=== PATIENT | male | born 1950 | race Caucasian/White ===

== ENCOUNTER → 2020-02-23 10:24 | Outpatient (BNVA) | payer MEDICARE, SELFPAY | PROVIDERS: PCP Internal Medicine; Referring Provider Internal Medicine; Visit Provider Surgery | DX: L72.0 Epidermal cyst (principal) | CPT/HCPCS: 99202 ==

== ENCOUNTER 2020-02-29 07:43 | Outpatient (REF) | payer MEDICARE, SELFPAY ==
[2020-02-29 07:48] VITALS: BP 142/85; PULSE 89; RESP 16; TEMP 36; O2SAT 98
[2020-02-29 07:51] VITALS: BMI 30.9
--- NOTE | 2020-02-29 08:37 | PM.OP ---
Brief Operative Note Date of Service: 02/29/20 Pre-op diagnosis: Epidermal inclusion cyst right hip Post-op diagnosis: same Procedure: Excision of epidermal inclusion cyst right hip Implants: none Surgeon: Bon Morales MD Anesthesia: local Estimated blood loss (mL): 2 Pathology: other (Epidermal inclusion cyst) Condition: stable Disposition: other (Home)
--- NOTE | 2020-02-29 08:39 | P.OP_ITS ---
Operative Note Operative Note Date of Service: 02/29/20 Narrative: Preoperative diagnosis: epidermal inclusion cyst right hip Postoperative diagnosis: same Procedure: Excision of epidermal inclusion cyst right hip Surgeon: Bon Morales MD Fruit Bar Maker: none Anesthesia: Local Indications for surgery: 69 year old male with an enlarging epidermal inclusion cyst of the right hip causeing some discomfort. Findings: 3 cm epidermal inclusion cyst right hip. Specimen: epidermal inclusion cyst right hip EBL: 2 ml Complications: none Procedure details: Patient was brought to the minor surgery suite and placed in a left lateral decubitus position. The site of surgery was confirmed by the patient and informed consent was confirmed. The skin was prepped with betadine and draped in a sterile fashion. Local was infiltrated around the lesion ( Lidocaine 1% with epi) and an elliptiical incision created. The incision was carried around the lesion and sharp dissection used to dissect the large cyst from the surround subcutaneous tissue. The cyst was passed off the table and sent to pathology for further examination. Subcutaneous tissue and dermis were reapproximated with interrupted 3-0 Polysord and skin closed with interrupted 3-0 Nylon suture. 2x2 gauze and tegaderm was applied. The patient tolerated the procedure well and was discharged to home in stable condition.
[2020-02-29 08:40] VITALS: BP 154/80; RESP 16; O2SAT 96
== END 2020-02-29 07:44 | disposition home or self-care (01) ==
LOC: HO.MS 07:43
PROVIDERS: PCP Internal Medicine; Visit Provider Surgery
PROC: (CPT 11403; principal; 2020-02-29 08:00)
DX: L72.0 Epidermal cyst (principal); I48.0 Paroxysmal atrial fibrillation
CPT/HCPCS: 11403; 12032; 88304

== ENCOUNTER → 2020-03-09 08:52 | Outpatient (BNVA) | payer MEDICARE, SELFPAY | PROVIDERS: PCP Internal Medicine; Visit Provider Surgery | DX: L72.0 Epidermal cyst (principal) | CPT/HCPCS: 99212 ==

== ENCOUNTER 2020-07-29 10:30 | Outpatient (REF) | payer MEDICARE, SELFPAY ==
[2020-07-29 12:00] LABS: Alanine Aminotransferase 25 U/L (0-40); Albumin Level 3.7 g/dL (3.5-5.0); Alkaline Phosphatase 146 U/L (39-117); Aspartate Amino Transferase 19 U/L (5-37); Bilirubin Direct 0.6 mg/dL (0.0-0.5); Bilirubin Total 1.5 mg/dL (0.0-1.0); Cholesterol 112 mg/dL; Glucose Fasting 111 mg/dL (60-99); HDL Cholesterol 33 mg/dL; LDL Cholesterol Calculated 66 mg/dl; Total Protein 6.4 g/dL (6.5-8.0); Triglycerides 68 mg/dL
[2020-07-29 12:23] LABS: Estimated Average Glucose 131 mg/dL; Hemoglobin A1c % 6.2 %
[2020-07-29 13:31] LABS: Reflex LDLD? No
== END 2020-07-29 10:31 | disposition home or self-care (01) ==
LOC: HO.LNP 10:30
PROVIDERS: Visit Provider Internal Medicine
DX: R73.03 Prediabetes (principal); E78.00 Pure hypercholesterolemia, unspecified
CPT/HCPCS: 80061; 80076; 82947; 83036

== ENCOUNTER 2021-01-31 10:47 | Outpatient (REF) | payer MEDICARE, SELFPAY ==
[2021-01-31 10:50] LABS: MANUAL DIFF FLAG NO
[2021-01-31 11:28] LABS: Appearance Urine CLEAR; Color Urine YELLOW; Glucose Urine UA NEG (NEG); Leukocyte Esterase Urine NEG (NEG); Nitrite Urine NEG (NEG); PH 5.5 (5.0-8.0); Specific Gravity - Urine >= 1.030 (1.005-1.025); Urine Blood NEG (NEG); Urine Ketones NEG (NEG); Urine Protein NEG (NEG-TRACE)
[2021-01-31 11:41] LABS: Basophils Percent Auto 0.4 % (0-2); Eosinophils Absolute Auto 0.3 X10*3/uL (0.0-0.4); Hematocrit 46.8 % (42.0-52.0); Hemoglobin 15.3 g/dl (14.0-18.0); Imm Gran Abs Auto 0.02 X10*3/uL (0.00-0.03); Imm Gran Pct Auto 0.2 % (0.0-0.4); Lymphocytes Absolute Auto 2.5 X10*3/uL (1.2-4.9); Lymphocytes Percent Auto 29.2 % (20-40); Mean Corpuscular HGB Conc 32.7 g/dl (31.0-36.0); Mean Corpuscular Hemoglobin 28.8 pg (27.0-33.0); Monocytes Absolute Auto 0.7 X10*3/uL (0.1-1.2); Monocytes Percent Auto 8.3 % (2-11); Neutrophils Percent Auto 58.9 % (45-73); Platelet Count 294 X10*3/uL (160-400); Red Blood Count 5.32 X10*6/uL (4.60-5.80); White Blood Count 8.6 X10*3/uL (4.8-10.8)
[2021-01-31 12:19] LABS: PSA,Total (Free>4and<10) 3.39 ng/mL (0.00-4.00)
[2021-01-31 12:20] LABS: Alanine Aminotransferase 32 U/L (0-40); Albumin Level 3.8 g/dL (3.5-5.0); Alkaline Phosphatase 138 U/L (39-117); Anion Gap 15 (12-20); Aspartate Amino Transferase 22 U/L (5-37); Bilirubin Total 1.7 mg/dL (0.0-1.0); Blood Urea Nitrogen 17 mg/dL (9-16); Calcium 9.1 mg/dL (8.4-10.2); Carbon Dioxide 23 mmol/L (22-29); Chloride 108 mmol/L (96-108); Cholesterol 115 mg/dL; Estimated Glomerular Filt Rate > 60; Glucose Fasting 109 mg/dL (60-99); HDL Cholesterol 36 mg/dL; LDL Cholesterol Calculated 66 mg/dl; Potassium 4.5 mmol/L (3.3-5.1); Sodium 141 mmol/L (135-145); Total Protein 6.7 g/dL (6.5-8.0); Triglycerides 68 mg/dL
[2021-01-31 12:26] LABS: Reflex LDLD? No
[2021-01-31 12:27] LABS: Estimated Average Glucose 126 mg/dL
[2021-01-31 12:28] LABS: Creatinine Urine 155.87 mg/dL; Microalbum/Creatinine Ratio Ur 3.8 ug/mg cr
== END 2021-01-31 10:48 | disposition home or self-care (01) ==
LOC: HO.LNP 10:47
PROVIDERS: PCP Internal Medicine; Visit Provider Internal Medicine
DX: Z00.00 Encounter for general adult medical examination without abnormal findings (principal); Z12.5 Encounter for screening for malignant neoplasm of prostate; R74.8 Abnormal levels of other serum enzymes; E78.00 Pure hypercholesterolemia, unspecified; R73.03 Prediabetes
CPT/HCPCS: 80053; 80061; 81003; 82043; 83036; 84153; 85025

== ENCOUNTER 2021-05-01 08:21 | Day surgery (SDC) | payer MEDICARE, SELFPAY ==
[2021-04-25 14:23] VITALS: BMI 30.2
--- NOTE | 2021-04-28 08:23 | HO.ANESPROP2 ---
Documented by User: Brooklyn Siddiqui NP 04/28/21 08:24 HPI - Anesthesia Eval Consult details Narrative: 70yo M for Colonoscopy [facility] Past Medical History Medical History (Updated 04/25/21 @ 14:17 by Antonia Miguel RN) Arthritis CAD (coronary artery disease) Hyperlipidemia AR (myocardial infarction) (~1999) Paroxysmal atrial fibrillation Family History Family History Mother History of stomach cancer Brother History of lung cancer Surgical History Surgical History (Updated 04/25/21 @ 14:17 by Antonia Miguel RN) H/O angioplasty (~1999) History of colonoscopy Hx of excision of mass S/P appendectomy (~05/2014) Social History Social History Alcohol intake: never Patient Tobacco Use Status: Tobacco use Unknown Use of substances other than those prescribed or required for medical reasons: No Advance Directives: No Advance Directives Information Provided: Yes Advance Directives on File: No Meds Allergies Allergy/AdvReac Type Severity Reaction Status Date / Time No Known Allergies Allergy Verified 04/25/21 14:22 Home Medications Medication Instructions Recorded Confirmed Last Taken Type aspirin 81 mg tablet,delayed 81 mg PO DAILY 02/23/20 04/25/21 Unknown History release atorvastatin 20 mg tablet 20 mg PO DAILY 02/23/20 04/25/21 Unknown History multivitamin 1 tab PO DAILY 02/23/20 04/25/21 Unknown History omega 9-hef-fdg-fish oil 1,000 mg 1 cap PO DAILY 04/25/21 04/25/21 Unknown History (120 mg-180 mg) capsule (Fish Oil) Exam Exam Date and Time: April 28, [id number] Height,Weight and Vital Signs: Height 6 ft 2 in Weight 106.594 kg Assessment and Plan Assessment Anesthesia Assessment: Chart Reviewed Documented by User: Althea Cosme MD 05/01/21 09:40 PMFSH Past Medical History Medical History (Updated 04/25/21 @ 14:17 by Antonia Miguel RN) Arthritis CAD (coronary artery disease) Hyperlipidemia AR (myocardial infarction) (~1999) Paroxysmal atrial fibrillation Family History Family History Mother History of stomach cancer Brother History of lung cancer Family history of problems with anesthesia: No Surgical History Surgical History (Updated 04/25/21 @ 14:17 by Antonia Miguel RN) H/O angioplasty (~1999) History of colonoscopy Hx of excision of mass S/P appendectomy (~05/2014) History of Problems with Anesthesia: No Social History Social History Alcohol intake: never Patient Tobacco Use Status: Tobacco use Unknown Use of substances other than those prescribed or required for medical reasons: No Advance Directives: No Advance Directives Information Provided: Yes Advance Directives on File: No Meds Allergies Allergy/AdvReac Type Severity Reaction Status Date / Time No Known Allergies Allergy Verified 04/25/21 14:22 Home Medications Medication Instructions Recorded Confirmed Last Taken Type aspirin 81 mg tablet,delayed 81 mg PO DAILY 02/23/20 04/25/21 Unknown History release atorvastatin 20 mg tablet 20 mg PO DAILY 02/23/20 04/25/21 Unknown History multivitamin 1 tab PO DAILY 02/23/20 04/25/21 Unknown History omega 0-mda-gtu-fish oil 1,000 mg 1 cap PO DAILY 04/25/21 04/25/21 Unknown History (120 mg-180 mg) capsule (Fish Oil) Exam Airway Mallampati Class: II (Partial left at home) TM Dist: >3cm Neck ROM: Full Partial: Upper and Lower Heart: rrr Lungs: cta Assessment and Plan Assessment Anesthesia Assessment: Anesthesia Plan Discussed and Chart Reviewed Final Anesthetic Review Family History of Problems with Anesthesia: No History of Problems with Anesthesia: No NPO: Yes ASA Class: III Final Preanesthetic Review: No Changes in Pt Med Stat, Meds/Allgs Chart Reviewed and Consent Obtained/Reviewed Patient Risk: Intermediate Procedure Risk: Intermediate Anesthetic Plan Anesthetic Plan: MAC: Disposition: Standard PACU
[2021-05-01 09:02] VITALS: BP 131/76; PULSE 81; RESP 16; TEMP 36.6; O2SAT 97
[2021-05-01 10:36] VITALS: BP 133/78; PULSE 77; RESP 14; TEMP 36.1; O2SAT 96
--- NOTE | 2021-05-01 10:41 | PM.OP ---
Brief Operative Note Date of Service: 05/01/21 Pre-op diagnosis: Screening Post-op diagnosis: other (Diverticulosis, Internal hemorrhoids) Procedure: Colonoscopy to the cecum and TI Surgeon: Harrison Bower Anesthesia: MAC Was an High Speed Operator used for this Procedure?: No Estimated blood loss (mL): 0 Pathology: none sent Condition: stable Disposition: PACU
[2021-05-01 10:51] VITALS: BP 139/77; PULSE 77; RESP 16; TEMP 36.1; O2SAT 97
--- NOTE | 2021-05-01 11:04 | OP_ITS ---
SURGEON: Harrison Bower MD INDICATIONS: The patient presents for evaluation of colorectal cancer screening, family history of colon cancer, and heme-positive stool. Full consent has been obtained from him for this, including risks of bleeding and perforation. PREOPERATIVE DIAGNOSIS: POSTOPERATIVE DIAGNOSIS: PROCEDURE PERFORMED: Colonoscopy to the cecum and terminal ileum. ESTIMATED BLOOD LOSS: COMPLICATIONS: ANESTHESIA: Medication used, monitored anesthesia care. ASSISTANTS: SPECIMENS: PREOPERATIVE DIAGNOSES: Colorectal cancer screening, family history of colon cancer, heme-positive stool. POSTOPERATIVE DIAGNOSES: Colorectal cancer screening, family history of colon cancer, heme-positive stool, diverticulosis, and internal hemorrhoids. DESCRIPTION OF PROCEDURE: The patient was placed in the left lateral decubitus position the digital rectal exam revealed no abnormalities. The Olympus video pediatric colonoscope was entered into the rectum and advanced easily to the cecum. Once in the cecum, I did identify normal-appearing cecal pouch with appendiceal orifice and a normal-appearing ileocecal valve. The terminal ileum was cannulated and appeared normal. The scope was withdrawn back in the colon. The entire cecum and ileocecal valve appeared normal. The scope was slowly withdrawn assessing all mucosal surfaces carefully. Preparation was excellent. I did not visualize any sign of polyps, colitis, nor angiodysplasia. There was a mild amount of sigmoid diverticulosis. In the rectum, the scope was retroflexed visualizing internal hemorrhoids, but no other pathology. The rectal mucosa appeared normal. The scope was straightened and withdrawn from the patient. He tolerated the procedure well and was returned to the recovery area in stable condition. IMPRESSION: 1. Diverticulosis. 2. Internal hemorrhoids. PLAN: Given the patient's family history, I would recommend a followup colonoscopy in 5 years for further screening. He will otherwise see me on a p.r.n. basis. MD TUNDE Pereira/TYLER / [phone]
== END 2021-05-01 11:15 | disposition home or self-care (01) ==
PROVIDERS: PCP Internal Medicine; Visit Provider Internal Medicine
PROC: 0DJD8ZZ Inspection of Lower Intestinal Tract, Via Natural or Artificial Opening Endoscopic (ICD-10-PCS; CPT 45378; principal; 2021-05-01 09:20)
DX: R19.5 Other fecal abnormalities (principal); Z80.0 Family history of malignant neoplasm of digestive organs; K57.30 Diverticulosis of large intestine without perforation or abscess without bleeding; K64.8 Other hemorrhoids; I25.10 Atherosclerotic heart disease of native coronary artery without angina pectoris; Z98.61 Coronary angioplasty status; I25.2 Old myocardial infarction; I48.0 Paroxysmal atrial fibrillation; E78.5 Hyperlipidemia, unspecified; Z79.82 Long term (current) use of aspirin; Z79.899 Other long term (current) drug therapy
CPT/HCPCS: 45378

== ENCOUNTER 2021-08-01 11:22 | Outpatient (REF) | payer MEDICARE, SELFPAY ==
[2021-08-01 12:08] LABS: Alanine Aminotransferase 24 U/L (0-40); Albumin Level 3.6 g/dL (3.5-5.0); Alkaline Phosphatase 130 U/L (39-117); Aspartate Amino Transferase 16 U/L (5-37); Bilirubin Direct 0.6 mg/dL (0.0-0.5); Bilirubin Total 1.7 mg/dL (0.0-1.0); Cholesterol 117 mg/dL; Glucose Fasting 104 mg/dL (60-99); HDL Cholesterol 34 mg/dL; LDL Cholesterol Calculated 72 mg/dl; Total Protein 6.6 g/dL (6.5-8.0); Triglycerides 59 mg/dL
[2021-08-01 12:52] LABS: Reflex LDLD? No
[2021-08-01 13:08] LABS: Estimated Average Glucose 123 mg/dL; Hemoglobin A1c % 5.9 %
== END 2021-08-01 11:23 | disposition home or self-care (01) ==
LOC: HO.LNP 11:22
PROVIDERS: PCP Internal Medicine; Visit Provider Internal Medicine
DX: E78.00 Pure hypercholesterolemia, unspecified (principal); R73.03 Prediabetes
CPT/HCPCS: 80061; 80076; 82947; 83036

== ENCOUNTER 2022-02-06 10:40 | Outpatient (REF) | payer MEDICARE, SELFPAY ==
[2022-02-06 10:44] LABS: MANUAL DIFF FLAG NO
[2022-02-06 10:59] LABS: Basophils Percent Auto 0.3 % (0-2); Eosinophils Absolute Auto 0.3 X10*3/uL (0.0-0.4); Eosinophils Percent Auto 3.7 % (0-4); Hematocrit 48.7 % (42.0-52.0); Hemoglobin 16.3 g/dl (14.0-18.0); Imm Gran Abs Auto 0.01 X10*3/uL (0.00-0.03); Imm Gran Pct Auto 0.1 % (0.0-0.4); Lymphocytes Absolute Auto 2.4 X10*3/uL (1.2-4.9); Mean Corpuscular HGB Conc 33.5 g/dl (31.0-36.0); Mean Corpuscular Hemoglobin 28.8 pg (27.0-33.0); Mean Platelet Volume 10.2 fL (9.4-12.4); Monocytes Absolute Auto 0.7 X10*3/uL (0.1-1.2); Monocytes Percent Auto 8.4 % (2-11); Neutrophils Absolute Auto 5.3 x10*3/uL (2.0-8.3); Neutrophils Percent Auto 60.5 % (45-73); Platelet Count 250 X10*3/uL (160-400); Red Blood Count 5.66 X10*6/uL (4.60-5.80); Red Cell Distribution Width 12.7 % (11.0-16.0); White Blood Count 8.8 X10*3/uL (4.8-10.8)
[2022-02-06 11:00] LABS: Appearance Urine Clear; Color Urine Yellow; Glucose Urine UA Negative (Negative); Leukocyte Esterase Urine Negative (Negative); Nitrite Urine Negative (Negative); PH 5.5 (5.0-9.0); Specific Gravity - Urine 1.025 (1.005-1.025); Urine Blood Negative (Negative); Urine Ketones Negative (Negative); Urine Protein Negative (Neg-Trace)
[2022-02-06 11:06] LABS: Bacteria Urine None Seen (None Seen); Hyaline Casts Urine 0-2 /LPF (0-2); RBC Urine 0-2 /HPF (0-2); Squamous Epithelial Cell Urine 0-2 /HPF (0-2); WBC Urine 0-5 /HPF (0-5)
[2022-02-06 13:52] LABS: Creatinine Urine 142.93 mg/dL; Microalbum/Creatinine Ratio Ur 4.1 ug/mg cr
[2022-02-06 14:13] LABS: Estimated Average Glucose 120 mg/dL; Hemoglobin A1c % 5.8 %
[2022-02-06 15:35] LABS: Alanine Aminotransferase 26 U/L (0-40); Albumin Level 3.9 g/dL (3.5-5.0); Alkaline Phosphatase 156 U/L (39-117); Anion Gap 13 (12-20); Aspartate Amino Transferase 21 U/L (5-37); Bilirubin Total 2.3 mg/dL (0.0-1.0); Blood Urea Nitrogen 20 mg/dL (9-16); Calcium 8.6 mg/dL (8.4-10.2); Carbon Dioxide 25 mmol/L (22-29); Chloride 107 mmol/L (96-108); Cholesterol 124 mg/dL; Estimated Glomerular Filt Rate > 60; Glucose Fasting 96 mg/dL (60-99); HDL Cholesterol 36 mg/dL; LDL Cholesterol Calculated 73 mg/dl; PSA,Total (Free>4and<10) 3.99 ng/mL (0.00-4.00); Potassium 4.4 mmol/L (3.3-5.1); Sodium 141 mmol/L (135-145); Total Protein 6.9 g/dL (6.5-8.0); Triglycerides 76 mg/dL
== END 2022-02-06 10:41 | disposition home or self-care (01) ==
LOC: HO.LNP 10:40
PROVIDERS: Visit Provider Internal Medicine
DX: Z00.00 Encounter for general adult medical examination without abnormal findings (principal); Z12.5 Encounter for screening for malignant neoplasm of prostate; E78.00 Pure hypercholesterolemia, unspecified; R73.03 Prediabetes
CPT/HCPCS: 80053; 80061; 81001; 82043; 83036; 84153; 85025

== ENCOUNTER 2022-08-14 07:34 | Outpatient (REF) | payer MEDICARE, SELFPAY ==
[2022-08-14 11:06] LABS: Alanine Aminotransferase 22 U/L (0-40); Albumin Level 3.5 g/dL (3.5-5.0); Alkaline Phosphatase 129 U/L (39-117); Aspartate Amino Transferase 15 U/L (5-37); Bilirubin Direct 0.5 mg/dL (0.0-0.5); Bilirubin Total 2.1 mg/dL (0.0-1.0); Cholesterol 115 mg/dL; HDL Cholesterol 36 mg/dL; LDL Cholesterol Calculated 68 mg/dl; Total Protein 6.4 g/dL (6.5-8.0); Triglycerides 58 mg/dL
[2022-08-14 11:12] LABS: Reflex LDLD? No
[2022-08-14 11:32] LABS: PSA,Total (Free>4and<10) 3.88 ng/mL (0.00-4.00)
== END 2022-08-14 07:35 | disposition home or self-care (01) ==
LOC: HO.10HDL 07:34
PROVIDERS: Visit Provider Internal Medicine
DX: Z12.5 Encounter for screening for malignant neoplasm of prostate (principal); E78.00 Pure hypercholesterolemia, unspecified; R97.20 Elevated prostate specific antigen [PSA]
CPT/HCPCS: 36415; 80061; 80076; 84153

== ENCOUNTER 2023-02-01 10:39 | Outpatient (REF) | payer MEDICARE, SELFPAY ==
[2023-02-01 10:45] LABS: MANUAL DIFF FLAG NO
[2023-02-01 10:58] LABS: Basophils Percent Auto 0.4 % (0-2); Eosinophils Absolute Auto 0.3 X10*3/uL (0.0-0.4); Eosinophils Percent Auto 3.3 % (0-4); Hematocrit 47.3 % (42.0-52.0); Hemoglobin 15.8 g/dl (14.0-18.0); Imm Gran Abs Auto 0.02 X10*3/uL (0.00-0.03); Imm Gran Pct Auto 0.3 % (0.0-0.4); Lymphocytes Absolute Auto 2.2 X10*3/uL (1.2-4.9); Lymphocytes Percent Auto 28.5 % (20-40); Mean Corpuscular HGB Conc 33.4 g/dl (31.0-36.0); Mean Corpuscular Hemoglobin 28.6 pg (27.0-33.0); Mean Corpuscular Volume 85.7 fL (80.0-98.0); Mean Platelet Volume 9.8 fL (9.4-12.4); Monocytes Absolute Auto 0.6 X10*3/uL (0.1-1.2); Monocytes Percent Auto 7.8 % (2-11); Neutrophils Absolute Auto 4.7 x10*3/uL (2.0-8.3); Neutrophils Percent Auto 59.7 % (45-73); Platelet Count 272 X10*3/uL (160-400); Red Blood Count 5.52 X10*6/uL (4.60-5.80); Red Cell Distribution Width 12.7 % (11.0-16.0); White Blood Count 7.8 X10*3/uL (4.8-10.8)
[2023-02-01 11:04] LABS: Alanine Aminotransferase 23 U/L (0-40); Albumin Level 3.7 g/dL (3.5-5.0); Alkaline Phosphatase 129 U/L (39-117); Anion Gap 11 (12-20); Aspartate Amino Transferase 20 U/L (5-37); Bilirubin Total 1.7 mg/dL (0.0-1.0); Blood Urea Nitrogen 17 mg/dL (9-16); Calcium 8.7 mg/dL (8.4-10.2); Carbon Dioxide 23 mmol/L (22-29); Chloride 110 mmol/L (96-108); Cholesterol 114 mg/dL (<200); Estimated Glomerular Filt Rate > 60; Glucose Fasting 107 mg/dL (60-99); HDL Cholesterol 34 mg/dL (>40); LDL Cholesterol Calculated 67 mg/dL (<100); Sodium 140 mmol/L (135-145); Triglycerides 65 mg/dL (<150)
[2023-02-01 11:14] LABS: Estimated Average Glucose 120 mg/dL; Hemoglobin A1C 162.4501 umol/L; Hemoglobin A1c % 5.8 % (<6.0)
[2023-02-01 11:25] LABS: PSA,Total (Free>4and<10) 4.15 ng/mL (0.00-4.00)
[2023-02-04 13:08] LABS: Percent Free Prostate Spec Ag 27 % (calc) (>25); Prostate Specific Ag Total 3.7 ng/mL (< OR = 4.0)
== END 2023-02-01 10:40 | disposition home or self-care (01) ==
LOC: HO.LNP 10:39
PROVIDERS: Visit Provider Internal Medicine
DX: E78.00 Pure hypercholesterolemia, unspecified (principal); R73.03 Prediabetes; Z12.5 Encounter for screening for malignant neoplasm of prostate
CPT/HCPCS: 80053; 80061; 83036; 84153; 84154; 85025

== ENCOUNTER 2023-02-14 10:47 | Outpatient (REF) | payer MEDICARE, SELFPAY ==
[2023-02-14 11:16] LABS: Appearance Urine Clear; Color Urine Yellow; Glucose Urine UA Negative (Negative); Leukocyte Esterase Urine Negative (Negative); Nitrite Urine Negative (Negative); Specific Gravity - Urine 1.025 (1.005-1.025); Urine Blood Negative (Negative); Urine Ketones Negative (Negative); Urine Protein Negative (Neg-Trace)
[2023-02-14 11:21] LABS: Bacteria Urine None Seen (None Seen); Hyaline Casts Urine 0-2 /LPF (0-2); RBC Urine 0-2 /HPF (0-2); Squamous Epithelial Cell Urine 0-2 /HPF (0-2); WBC Urine 0-5 /HPF (0-5)
[2023-02-14 12:36] LABS: Creatinine Urine 183.72 mg/dL; Microalbum/Creatinine Ratio Ur 3.2 ug/mg cr (<30)
== END 2023-02-14 10:48 | disposition home or self-care (01) ==
LOC: HO.LNP 10:47
PROVIDERS: Visit Provider Internal Medicine
DX: R73.03 Prediabetes (principal); E78.00 Pure hypercholesterolemia, unspecified
CPT/HCPCS: 81001; 82043; 82570

== ENCOUNTER 2023-02-14 20:51 | Emergency (ER) | payer MEDICARE, SELFPAY ==
--- NOTE | ~2023-02-14 | CT_ITS ---
EXAMINATION: CT SOFT TISSUE NECK WITHOUT CONTRAST CLINICAL INFORMATION: Possible foreign body ingestion. COMPARISON: None available. TECHNIQUE: Helical imaging was performed in the axial plane with generation of coronal and sagittal reformatted images. This CT examination was performed using dose optimization techniques as appropriate, variously including the following: *Automated exposure control *Adjustment of mA and/or kV according to patient size (this includes techniques or standardized protocols for targeted exams where dose is matched to indication/reason for exam; i.e. extremities or head) *Use of iterative reconstruction technique DLP: 574 mGy-cm FINDINGS: The nasopharynx oropharynx and hypopharynx are unremarkable. The prevertebral soft tissues are unremarkable. The cervical esophagus is unremarkable in appearance. The thyroid glands, submandibular glands and parotid glands are unremarkable. There is no significant lymph node enlargement. There is maxillary sinus mucosal thickening. The orbital structures are unremarkable. There is cervical degenerative change without acute osseous abnormality. The visualized upper lung bonilla are clear. CT/CT soft tissue neck wo IV con IMPRESSION: Unremarkable examination. No radiopaque foreign body.
[2023-02-14 21:12] VITALS: BP 122/83; PULSE 89; RESP 18; TEMP 36.6; O2SAT 96; BMI 30.9
--- NOTE | 2023-02-14 23:05 | ED.GENADULT ---
HPI - General Adult General Chief complaint: General Medical Stated complaint: meat stuck in throat Time Seen by Provider: 02/14/23 22:59 Source: patient Mode of arrival: ambulatory Limitations: no limitations History of Present Illness HPI narrative: Patient comes to the emergency room complaining of foreign body sensation in the esophagus. Patient states that approximately 10 hours ago, patient was eating ham, patient states that he had a sensation of a big chunk of him getting stuck in the esophagus. Patient states that anything that he tried eating afterwards, he vomited including fluids. Patient states that he has had this happen before and needed an endoscopy. Patient denies history of esophageal strictures or dilations. Related Data Home Medications ?Medication ?Instructions ?Recorded ?Confirmed aspirin 81 mg tablet,delayed 81 mg PO DAILY 02/23/20 05/01/21 release atorvastatin 20 mg tablet 20 mg PO DAILY 02/23/20 04/25/21 multivitamin 1 tab PO DAILY 02/23/20 04/25/21 omega 4-mvw-bqy-fish oil 1,000 mg 1 cap PO DAILY 04/25/21 05/01/21 (120 mg-180 mg) capsule (Fish Oil) Allergies Allergy/AdvReac Type Severity Reaction Status Date / Time No Known Allergies Allergy Verified 04/25/21 14:22 Review of Systems Review of Systems: Constitutional : No Weight loss, No Fever, No Chills, No Night Sweats, No Fatigue, No Malaise ENT/Mouth : Complaining of foreign body sensation in the throat No Hearing loss, No Ear Pain, No Nasal Congestion, No Sinus Pain, No Hoarseness, No sore throat, No Rhinorrhea, No Swallowing Difficulty Eyes: No Eye Pain, No Swelling, No Redness, No Foreign Body, No Discharge, No Vision Changes Cardiovascular : No Chest Pain, No SOB, No Dyspnea on Exertion, No Orthopnea, No Edema, No Palpitations Respiratory : No Cough, No Sputum, No Wheezing, No Smoke Exposure, No Dyspnea Gastrointestinal : No Nausea, complaining of Vomiting after trying to eat or drink anything, No Diarrhea, No Constipation, No abdominal Pain, No Hematochezia, No Melena Genitourinary : no irregular bleeding, No Dysuria, No Urinary Frequency, No Hematuria, No Urinary Incontinence, No Urgency, No Flank Pain, No Urinary Flow Changes, No Hesitancy Musculoskeletal : No joint pain, No Myalgias, No Joint Swelling Skin : No Skin Lesions, No rash Neuro : No Weakness, No Numbness, No Paresthesias, No Loss of Consciousness, No Dizziness, No Headache Psych : No Anxiety/Panic, No Depression, No SI/HI/AH/VH, No Social Issues, Heme/Lymph: No Bruising, No Bleeding,No Lymphadenopathy Endocrine : No Polyuria, No Polydipsia, No Temperature Intolerance [facility] Past Medical History Medical History Arthritis Hyperlipidemia NE (myocardial infarction) (~1999) CAD (coronary artery disease) Paroxysmal atrial fibrillation Surgical History Hx of excision of mass H/O angioplasty (~1999) S/P appendectomy (~05/2014) History of colonoscopy Family History Family History Mother History of stomach cancer Brother History of lung cancer Social History Social History Alcohol intake: never Patient Tobacco Use Status: Tobacco use Unknown Physical Exam ED Vital Signs: Vital Signs - 24 hr 02/14/23 21:12 02/14/23 23:55 02/15/23 02:00 Temperature 98 F 98.4 F 98.4 F Pulse Rate 89 90 96 Respiratory Rate 18 18 18 Blood Pressure 122/83 154/85 H 127/81 Pulse Oximetry 96 98 98 Oxygen Delivery Method Room Air Room Air Room Air BMI result Body Mass Index 30.9 Const Other: Appearance: Alert. Oriented X3. No acute distress. Eyes: Pupils equal, round and reactive to light. ENT: Pharynx normal. Neck: Normal inspection. Neck supple. No lymph nodes noted. No crepitus CVS: Normal heart rate and rhythm. Pulses normal. Normal S1 and S2 Respiratory: No respiratory distress. Breath sounds normal. No Wheezing. No rales Abdomen: Soft and nontender. No rigidity. No distention. Skin: Skin warm and dry. Normal skin color. Normal skin turgor. Extremities: No lower extremity edema. No Lacerations. No Rash Neuro: Oriented X 3. No motor deficit. No sensory deficit. Moving all extremities. No slurred speech. CN 2 through 12 grossly intact Psych: calm, cooperative, normal affect Course Course Course Narrative: -when patient arrived to triage, patient tried drinking water, patient vomited immediately -all vital signs stable -basic labs pending -CT scan pending Medications Administered Discontinued Medications Generic Name Dose Route Start Last Admin Trade Name Bridget PRN Reason Stop Dose Admin Glucagon 1 mg 02/14/23 23:05 02/14/23 23:18 Glucagon Hcl 1 Mg Vial IVPUSH 02/14/23 23:06 1 mg ONCE ONE Administration Nitroglycerin 0.4 mg 02/15/23 00:56 02/15/23 01:02 Nitroglycerin 0.4 Mg Tab.Subl SUBLINGUAL 02/15/23 00:57 0.4 mg ONCE ONE Administration Medical Decision Making Medical Decision Making [facility] Narrative: -My interpretation of CT soft tissue neck: no obvious food bolus obstructing the upper esophagus -I discussed the patient with Dr. Bowers, at this time, recommendations: Sublingual nitroglycerin in 10 mL of water -patient has been gurgling in water and duyen perez. Patient went to the bathroom, made himself throw up and he was able to spit up a very large amount of a bolus very likely containing ham -patient no drinking, patient states he feels a bit achy but he is able to swallow water completely without vomiting Differential Diagnosis Differential Diagnoses: The differential diagnosis associated with the presentation includes (Esophageal bolus) Lab Data 02/14/23 23:15 02/15/23 00:23 Labs: Lab Results 02/14/23 02/15/23 Range/Units 23:15 00:23 WBC 12.4 H (4.8-10.8) X10*3/uL RBC 6.01 H (4.60-5.80) X10*6/uL Hgb 17.3 (14.0-18.0) g/dl Hct 50.9 (42.0-52.0) % MCV 84.7 (80.0-98.0) fL MCH 28.8 (27.0-33.0) pg MCHC 34.0 (31.0-36.0) g/dl RDW 12.8 (11.0-16.0) % Plt Count 269 (160-400) X10*3/uL MPV 9.0 L (9.4-12.4) fL Immature Gran % (Auto) 0.4 (0.0-0.4) % Neut % (Auto) 85.0 H (45-73) % Lymph % (Auto) 10.0 L (20-40) % Sutter % (Auto) 4.2 (2-11) % Eos % (Auto) 0.2 (0-4) % Baso % (Auto) 0.2 (0-2) % Lymph # (Auto) 1.2 (1.2-4.9) X10*3/uL Sutter # (Auto) 0.5 (0.1-1.2) X10*3/uL Eos # (Auto) 0.0 (0.0-0.4) X10*3/uL Baso # (Auto) 0.0 (0.0-0.2) X10*3/uL Abs Immat Gran (auto) 0.05 H (0.00-0.03) X10*3/uL Absolute Neuts (auto) 10.6 H (2.0-8.3) x10*3/uL Absolute Nucleated RBC 0.000 (0.0-0.012) X10*3/uL Nucleated RBC % (auto) 0.0 (0.0-0.2) /100WBC Sodium 143 (135-145) mmol/L Potassium 4.6 (3.3-5.1) mmol/L Chloride 109 H (96-108) mmol/L Carbon Dioxide 23 (22-29) mmol/L Anion Gap 16 (12-20) BUN 24 H (9-16) mg/dL Creatinine 0.88 (0.5-1.4) mg/dL Estim Creat Clear Calc 94.2 Estimated GFR > 60 Random Glucose 172 H (60-115) mg/dL Calcium 9.0 (8.4-10.2) mg/dL Total Bilirubin 1.9 H (0.0-1.0) mg/dL Direct Bilirubin 0.5 (0.0-0.5) mg/dL AST 32 D (5-37) U/L ALT 34 (0-40) U/L Alkaline Phosphatase 140 H (39-117) U/L Total Protein 7.6 (6.5-8.0) g/dL Albumin 3.9 (3.5-5.0) g/dL Lipase 10 (8-78) U/L Critical Care Time Critical Care Time Critical Care Time: Yes Total Critical Care Time: 60 Attestation: Needs signature Discharge Plan Discharge Clinical Impression: Foreign body in esophagus Patient Disposition: Home, Self-Care Instructions: Foreign Body Ingestion (ED) Additional Instructions: Please follow-up with your primary care physician tomorrow. If you have any worsening or new symptoms, please return to the emergency room or call 911 Prescriptions: No Action omega 2-ztc-bxt-fish oil [Fish Oil] 1,000 mg (120 mg-180 mg) Capsule 1 cap PO DAILY atorvastatin 20 mg tablet 20 mg PO DAILY multivitamin Tablet 1 tab PO DAILY aspirin 81 mg tablet,delayed release (DR/EC) 81 mg PO DAILY Interventions: ED Discharge Assessment Last Done: 02/15/23 03:30 Discharge Date/Time: 02/15/23 03:30 Print Language: Armenian
--- NOTE | 2023-02-14 23:06 | ECG_ITS ---
Test Reason : EPIGASTRIC PAIN Blood Pressure : / mmHG Vent. Rate : 098 BPM Atrial Rate : 098 BPM P-R Int : 196 ms QRS Dur : 102 ms QT Int : 366 ms P-R-T Axes : 056 022 028 degrees QTc Int : 467 ms Normal sinus rhythm Normal ECG When compared with ECG of 07-JUN-2014 07:57, No significant change was found Referred By: Romelia Arrieta Electronically Signed By:HENRRY GEIGER
[2023-02-14] MEDS: glucagon HCL 1 MG VIAL IVPUSH (23:18)
[2023-02-14 23:19] LABS: MANUAL DIFF FLAG NO; Red Blood Count 6.01 X10*6/uL (4.60-5.80); White Blood Count 12.4 X10*3/uL (4.8-10.8)
[2023-02-14 23:20] LABS: Basophils Percent Auto 0.2 % (0-2); Eosinophils Percent Auto 0.2 % (0-4); Hematocrit 50.9 % (42.0-52.0); Hemoglobin 17.3 g/dl (14.0-18.0); Imm Gran Abs Auto 0.05 X10*3/uL (0.00-0.03); Imm Gran Pct Auto 0.4 % (0.0-0.4); Lymphocytes Absolute Auto 1.2 X10*3/uL (1.2-4.9); Mean Corpuscular Hemoglobin 28.8 pg (27.0-33.0); Mean Corpuscular Volume 84.7 fL (80.0-98.0); Monocytes Absolute Auto 0.5 X10*3/uL (0.1-1.2); Monocytes Percent Auto 4.2 % (2-11); Neutrophils Absolute Auto 10.6 x10*3/uL (2.0-8.3); Platelet Count 269 X10*3/uL (160-400); Red Cell Distribution Width 12.8 % (11.0-16.0)
[2023-02-14 23:55] VITALS: BP 154/85; PULSE 90; RESP 18; TEMP 36.9; O2SAT 98
[2023-02-15 00:50] LABS: Anion Gap 16 (12-20); Blood Urea Nitrogen 24 mg/dL (9-16); Carbon Dioxide 23 mmol/L (22-29); Chloride 109 mmol/L (96-108); Creatinine Clr Calc Pharmacy 94.2; Estimated Glomerular Filt Rate > 60; Potassium 4.6 mmol/L (3.3-5.1); Sodium 143 mmol/L (135-145)
[2023-02-15 00:51] LABS: Alanine Aminotransferase 34 U/L (0-40); Albumin Level 3.9 g/dL (3.5-5.0); Alkaline Phosphatase 140 U/L (39-117); Aspartate Amino Transferase 32 U/L (5-37); Bilirubin Direct 0.5 mg/dL (0.0-0.5); Bilirubin Total 1.9 mg/dL (0.0-1.0); Glucose Random 172 mg/dL (60-115); Total Protein 7.6 g/dL (6.5-8.0)
[2023-02-15 00:52] LABS: Lipase 10 U/L (8-78)
[2023-02-15] MEDS: Nitroglycerin 0.4 MG TAB.SUBL SUBLINGUAL (01:02)
[2023-02-15 02:00] VITALS: BP 127/81; PULSE 96; RESP 18; TEMP 36.9; O2SAT 98
--- NOTE | 2023-02-15 02:11 | PC.NURSE ---
Pt tolerating PO intake well after nitro administration. Requested duyen perez - given
--- NOTE | 2023-02-15 02:35 | PC.NURSE ---
Pt unable to hold down duyen perez, he continues to wretch. However, a small piece of ham was seen in his emesis bag. Pt was excited, stated he felt a little better, and requested more duyen perez.
--- NOTE | 2023-02-15 02:47 | PC.NURSE ---
Pt tolerating PO intake well, stated he is drinking with no problem. Did report going to the bathroom and throwing up, no food particles spotted.
== END 2023-02-15 03:30 | disposition home or self-care (01) ==
PROVIDERS: Emergency Provider Emergency Medicine; PCP Internal Medicine
DX: T18.128A Food in esophagus causing other injury, initial encounter (principal); R11.2 Nausea with vomiting, unspecified; R10.13 Epigastric pain; W44.F3XA Food entering into or through a natural orifice, initial encounter; Y93.9 Activity, unspecified; Y92.9 Unspecified place or not applicable; Y99.9 Unspecified external cause status; Z79.899 Other long term (current) drug therapy
CPT/HCPCS: 36415; 70490; 80048; 80076; 83690; 85025; 93005; 96374; 99284; J1610

== ENCOUNTER → 2023-02-14 23:06 | Outpatient (BNV) | payer MEDICARE, SELFPAY | PROVIDERS: Emergency Provider Emergency Medicine; PCP Internal Medicine; Visit Provider Internal Medicine | DX: R10.13 Epigastric pain (principal) | CPT/HCPCS: 93010 ==

== ENCOUNTER 2023-03-12 11:20 | Outpatient (REF) | payer MEDICARE, SELFPAY ==
--- NOTE | ~2023-03-12 | US_ITS ---
EXAMINATION: US EXTRACRANIAL CAROTID DUPLEX, BILATERAL CLINICAL INFORMATION: TIA COMPARISON: None available. TECHNIQUE: Real-time ultrasound and Doppler techniques (integrating B-mode 2-D vascular images, Doppler spectral analysis and color-flow Doppler imaging) were utilized to interrogate the extracranial carotid arteries, the vertebral arteries and proximal subclavian arteries bilaterally. The degree of stenosis is determined by criteria similar to NASCET. FINDINGS: Right Side: 1. There is mild atherosclerotic plaque seen in the bifurcation/proximal ICA region. 2. The common carotid artery PSV proximally is 125 cm/s and distally 100 cm/s. 3. The proximal internal carotid artery velocities are 51 cm/s systolic and 10 cm/s diastolic. 4. The proximal external carotid artery PSV is 99 cm/s. 5. The vertebral artery shows antegrade flow. 6. The subclavian artery waveforms are normal. Left Side: 1. There is no atherosclerotic plaque seen in the bifurcation/proximal ICA region. 2. The common carotid artery PSV proximally is 123 cm/s and distally 110 cm/s. 3. The proximal internal carotid artery velocities are 83 cm/s systolic and 18 cm/s diastolic. 4. The proximal external carotid artery PSV is 83 cm/s. 5. The vertebral artery shows antegrade flow. 6. The subclavian artery waveforms are normal. US/US carotid duplex BI IMPRESSION: 1. RIGHT: Minimal, non-hemodynamically significant stenosis of the proximal right internal carotid artery corresponding to a 0-49% stenosis by velocity criteria. 2. LEFT: Normal left internal carotid artery without atherosclerotic plaque or hemodynamically significant stenosis.
== END 2023-03-12 11:21 | disposition home or self-care (01) ==
LOC: HO.US 11:20
PROVIDERS: PCP Internal Medicine; Visit Provider Internal Medicine
DX: G45.9 Transient cerebral ischemic attack, unspecified (principal)
CPT/HCPCS: 93880

== ENCOUNTER 2024-02-07 13:05 | Outpatient (REF) | payer MEDICARE, SELFPAY ==
[2024-02-07 13:08] LABS: MANUAL DIFF FLAG NO
--- OUTSIDE RECORDS SUMMARY | 2024-02-07 13:08 | XMS_ITS | Patient Health Record ---
Author Organization Samy Le MD Address [address] [place], [place] [phone] Care Team Providers Care Legal Support Assistant Name Role Phone Samy Le Primary Care Provider ALLERGIES Allergen (clinical drug ingredient) Drug/Non Drug Allergy documented on EMR Reaction Allergy Type Onset Date Status Penicillin G Benzathine Rash Drug Allergy Inactive RESULTS Component Value Reference Range Notes Occult Blood, Stool, Guaiac Reviewed date:02/14/2023 03:29:40 PM Interpretation:Negative Performing Lab: Notes/Report: Negative Occult Blood, Stool, Guaiac Neg Microalbumin, Random Reviewed date:02/14/2023 01:27:30 PM Interpretation: Performing Lab:[facility], [address] [place] [phone] Notes/Report: Creatinine Urine 183.72 Microalbumin Urine 6.0 Microalbum/Creatinine Ratio Ur 3.2 <30 ug/mg cr Albumin/Creatinine Ratio Reference Ranges: Normal: < 30 ug/mg creatinine Microalbuminuria: 30 - 300 ug/mg creatinine Clinical Albuminuria: > 300 ug/mg creatinine UA ClnCatch+Micro w/rflx Cul t Reviewed date:02/14/2023 01:29:22 PM Interpretation: Performing Lab:[facility], [address] [place] [phone] Notes/Report: Urine, Clean Catch Color Urine Yellow Appearance Urine Clear PH 5.0 5.0-9.0 Glucose Urine UA Negative Negative mg/dL Urine Blood Negative Negative Specific [place] - Urine 1.025 1.005-1.025 Urine Protein Negative Neg-Trace mg/dL Urine Ketones Negative Negative mg/dL Nitrite Urine Negative Negative Leukocyte Esterase Urine Negative Negative RBC Urine 0-2 0-2 /HPF WBC Urine 0-5 0-5 /HPF Squamous Epithelial Cell Urine 0-2 0-2 /HPF Bacteria Urine None Seen None Seen Hyaline Casts Urine 0-2 0-2 /LPF Complete Blood Count Auto Di ff Reviewed date:02/15/2023 09:41:34 AM Interpretation: Performing Lab:[facility], [address] [place] [phone] Notes/Report: White Blood Count 12.4 4.8-10.8 X10*3/uL Red Blood Count 6.01 4.60-5.80 X10*6/uL Hemoglobin 17.3 14.0-18.0 g/dl Hematocrit 50.9 42.0-52.0 % Mean Corpuscular Volume 84.7 80.0-98.0 fL Mean Corpuscular Hemoglobin 28.8 27.0-33.0 pg Mean Corpuscular HGB Conc 34.0 31.0-36.0 g/dl Red Cell Distribution Width 12.8 11.0-16.0 % Platelet Count 269 160-400 X10*3/uL Mean Platelet Volume 9.0 9.4-12.4 fL Neutrophils Percent Auto 85.0 45-73 % Imm Gran Pct Auto 0.4 0.0-0.4 % Lymphocytes Percent Auto 10.0 20-40 % Monocytes Percent Auto 4.2 2-11 % Eosinophils Percent Auto 0.2 0-4 % Basophils Percent Auto 0.2 0-2 % NRBC Pct Auto 0.0 0.0-0.2 /100WBC Neutrophils Absolute Auto 10.6 2.0-8.3 x10*3/u L Imm Gran Abs Auto 0.05 0.00-0.03 X10*3/uL Lymphocytes Absolute Auto 1.2 1.2-4.9 X10*3/u L Monocytes Absolute Auto 0.5 0.1-1.2 X10*3/uL Eosinophils Absolute Auto 0.0 0.0-0.4 X10*3/u L Basophils Absolute Auto 0.0 0.0-0.2 X10*3/uL NRBC Abs Auto 0.000 0.0-0.012 X10*3/uL CT soft tissue neck wo con Reviewed date:02/15/2023 09:39:37 AM Interpretation: Performing Lab: Notes/Report: [address] [address] [address] Scan Report Signed Patient: Mauricio Horn MR#: [id number] 522 : 1950 Acct:[id number] Age/Sex: 72 / M ADM Date: 02/14/23 Loc: HO.ED Attending Dr: Ordering Physician: Romelia Arrieta MD Date of Service: 02/14/23 Procedure(s): CT soft tissue neck wo IV con Accession Number(s): [id number] cc: Samy Le MD; Romelia Arrieta MD EXAMINATION: CT SOFT TISSUE NECK WITHOUT CONTRAST CLINICAL INFORMATION: Possible foreign body ingestion. COMPARISON: None available. TECHNIQUE: Helical imaging was performed in the axial plane with generation of coronal and sagittal reformatted images. This CT examination was performed using dose optimization techniques as appropriate, variously including the following: *Automated exposure control *Adjustment of mA and/or kV according to patient size (this includes techniques or standardized protocols for targeted exams where dose is matched to indication/reason for exam; i.e. extremities or head) *Use of iterative reconstruction technique DLP: 574 mGy-cm FINDINGS: The nasopharynx oropharynx and hypopharynx are unremarkable. The prevertebral soft tissues are unremarkable. The cervical esophagus is unremarkable in appearance. The thyroid glands, submandibular glands and parotid glands are unremarkable. There is no significant lymph node enlargement. There is maxillary sinus mucosal thickening. The orbital structures are unremarkable. There is cervical degenerative change without acute osseous abnormality. The visualized upper lung bonilla are clear. CT/CT soft tissue neck wo IV con IMPRESSION: Unremarkable examination. No radiopaque foreign body. Dictated By: Harrison Rodriguez Signed By: <Electronically signed by Harrison Rodriguez in OV> 02/15/23 0023 DD/ TD/TT: Professor Of Vegetable Science: Liver Panel Reviewed date:02/15/2023 09:39:05 AM Interpretation: Performing Lab:[facility], [address] [place] [phone] Notes/Report: Bilirubin Total 1.9 0.0-1.0 mg/dL Bilirubin Direct 0.5 0.0-0.5 mg/dL Aspartate Amino Transferase 32 5-37 U/L Alanine Aminotransferase 34 0-40 U/L Total Protein 7.6 6.5-8.0 g/dL Albumin Level 3.9 3.5-5.0 g/dL Alkaline Phosphatase 140 39-117 U/L Basic Metabolic Panel Reviewed date:02/15/2023 09:40:32 AM Interpretation: Performing Lab:[address] [phone] Notes/Report: Sodium 143 135-145 mmol/L Potassium 4.6 3.3-5.1 mmol/L Chloride 109 96-108 mmol/L Carbon Dioxide 23 22-29 mmol/L Anion Gap 16 12-20 Blood Urea Nitrogen 24 9-16 mg/dL Creatinine 0.88 0.5-1.4 mg/dL Creatinine Clr Calc Pharmacy 94.2 eGFR (calculated from the MDRD study equation) and eCrCl (calculated from the Cockcroft-Gault equation) are based on different parameters and may not yield comparable results. If eCrCl result is absurd, please check patient's height/weight. Estimated Glomerular Filt Rate > 60 NOTE: For -Namibian individuals, multiply the result by 1.210. Chronic Kidney Disease: Estimated GFR < 60 mL/min/1.73m2 Severe Kidney Disease: Estimated GFR < 15 mL/min/1.73m2 Glucose Random 172 60-115 mg/dL Calcium 9.0 8.4-10.2 mg/dL Lipase Reviewed date:02/15/2023 09:39:44 AM Interpretation: Performing Lab:[facility], [address] [place] [phone] Notes/Report: Lipase 10 8-78 U/L US carotid duplex BI Reviewed date:03/13/2023 03:19:37 PM Interpretation: Performing Lab: Notes/Report: [address] [address] Ultrasound Report Signed Patient: Mauricio Horn MR#: [id number] 522 : 1950 Acct:[id number] Age/Sex: 72 / M ADM Date: 03/12/23 Loc: HO. Attending Dr: Samy Le MD Ordering Physician: Samy Le MD Date of Service: 03/12/23 Procedure(s): US carotid duplex BI Accession Number(s): [id number] cc: Samy Le MD EXAMINATION: US EXTRACRANIAL CAROTID DUPLEX, BILATERAL CLINICAL INFORMATION: TIA COMPARISON: None available. TECHNIQUE: Real-time ultrasound and Doppler techniques (integrating B-mode 2-D vascular images, Doppler spectral analysis and color-flow Doppler imaging) were utilized to interrogate the extracranial carotid arteries, the vertebral arteries and proximal subclavian arteries bilaterally. The degree of stenosis is determined by criteria similar to NASCET. FINDINGS: Right Side: 1. There is mild atherosclerotic plaque seen in the bifurcation/proximal ICA region. 2. The common carotid artery PSV proximally is 125 cm/s and distally 100 cm/s. 3. The proximal internal carotid artery velocities are 51 cm/s systolic and 10 cm/s diastolic. 4. The proximal external carotid artery PSV is 99 cm/s. 5. The vertebral artery shows antegrade flow. 6. The subclavian artery waveforms are normal. Left Side: 1. There is no atherosclerotic plaque seen in the bifurcation/proximal ICA region. 2. The common carotid artery PSV proximally is 123 cm/s and distally 110 cm/s. 3. The proximal internal carotid artery velocities are 83 cm/s systolic and 18 cm/s diastolic. 4. The proximal external carotid artery PSV is 83 cm/s. 5. The vertebral artery shows antegrade flow. 6. The subclavian artery waveforms are normal. US/US carotid duplex BI IMPRESSION: 1. RIGHT: Minimal, non-hemodynamically significant stenosis of the proximal right internal carotid artery corresponding to a 0-49% stenosis by velocity criteria. 2. LEFT: Normal left internal carotid artery without atherosclerotic plaque or hemodynamically significant stenosis. Dictated By: Jose Traylor MD Signed By: <Electronically signed by Jose Traylor MD in OV> 03/13/23 1328 DD/ 1151 TD/TT: Professor Of Vegetable Science: XAVIER REASON FOR REFERRAL Reason PSA Elevation Diagnosis 1 PSA elevation (R97.2 0) Referral Organization Samy Le MD Referring Provider First Name Samy Referring Provider Last Name Mimi Referring Provider Speciality Internal M edicine Referred Provider JOSE CASTRO Referred Provider Specialty Urology General Notes Maribell Mae 09:14:51 AM EST > info faxed Maribell Mae 02/15/2023 02:47:00 PM EST > patient is aware of appt Referral Priority Routine Referral Appointment Date 03/18/2023 MEDICATIONS Medication SIG (Take, Route, Frequency, Duration) Notes Start Date End Date Status Fish Oil 1000 MG 1 capsule Orally Onc e a day Active Djoygd-Lvvlnpkup-ZIQ Complex Orally Active Atorvastatin Calcium 20 MG TAKE 1 TABLET BY MOUTH ONCE DAILY for 100 Active Multi Vitamin Mens Orally A ctive Aspir-Low 81 MG 1 tablet Orally Once a day for 30 day(s) 03/26/2023 Active Melatonin 1 MG 1 capsule at bedtime as needed Orally Once a day for 30 day(s) Active Naprosyn 375 MG 1 tablet Orally Twic e a day for 30 day(s) 11/09/2013 Active IMMUNIZATIONS Vaccine Route Administration Date Status Comme nts Fluarix Quadrivalent IM Intramuscular 11/09/2013 Administe red PPSV23 (Pnemovax) IM Intramuscular 02/01/2014 Administered Prevnar 13 IM Intramuscular 05/03/2014 Administered Fluarix Quadrivalent IM Intramuscular 11/22/2014 Administe red Fluarix Quadrivalent IM Intramuscular 12/05/2015 Administe red Fluarix Quadrivalent IM Intramuscular 12/18/2016 Administe red Fluarix Quadrivalent IM Intramuscular 12/31/2017 Administe red Fluarix Quadrivalent IM Intramuscular 01/05/2019 Administe red Shingrix IM Intramuscular 08/24/2019 Administered Pt was given the vaccine at [facility] on [facility] Fluarix Quadrivalent IM Intramuscular 01/19/2020 Administe red SARS-COV-2 Pfizer Unknown 06/12/2020 Administered SARS-COV-2 Pfizer Unknown 07/03/2020 Administered Influenza High Dose IM Intramuscular 11/03/2020 Administer ed SARS-COV-2 Pfizer Unknown 01/11/2021 Administered PPSV23 (Pnemovax) IM Intramuscular 09/04/2021 Administered Influenza High Dose Unknown 10/27/2021 Administered Anjali pierce SARS-COV-2 Pfizer Unknown 10/29/2021 Administered [facility] Fluarix Quadrivalent Unknown 10/27/2021 Administered Wa lgrtomas's Influenza High Dose IM Intramuscular 11/20/2022 Administer ed SARS-COV-2 Pfizer Unknown 07/11/2023 Administered [facility] Flu Vaccine Unknown 11/09/2013 Pending SOCIAL HISTORY Tobacco Use: Social History Observation Description Date Details (start date - stop date) Never Smoker NA - NA Sex Assigned At : Social History Observation Description Sex Assigned At Unknown Tobacco Use/Smoking Question Answer Notes Patient is a nonsmoker Additional Findings: Tobacco Non-User Cu rrent non-smoker, currently using no form of tobacco Alcohol Screen Question Answer Notes Did you have a drink containing alcohol in the p ast year? No Points 0 Interpretation Negative PROBLEMS Problem Type ICD Code Onset Dates Problem Status W/U Status Risk SNOMED Code Notes Problem Old myocardial infarction (I25.2) Active confirmed Old myocardial infarction (2675095) Problem Prediabetes (R73.03) Active confirmed 7 [id number] Problem Pure hypercholesterolemia (E78.00) Active confirmed 949702360 Problem Peyronie's disease (N48.6) Active confirmed Peyronie's disease (7842533) Problem BMI 30.0-30.9,adult (Z68.30) Active confirmed 718973465 Problem BMI 31.0-31.9,adult (Z68.31) Active confirmed 500894401 Problem Transient ischemic attack (TIA) (G45.9) Active confirmed 040379770 Problem Cerebral meningioma (D32.0) Active confirmed 145744177 VITAL SIGNS Blood pressure diastolic 70 mm Hg 03/26/2023 Pat ient states weight is 232 Height 73.5 in 03/26/2023 Patient states weight is 232 Blood pressure systolic 148 mm Hg 03/26/2023 Yenifer ent states weight is 232 Weight 233 lbs 02/14/2023 BMI 30.32 kg/m2 02/14/2023 Encounters Encounter Location Date Provider Diagnosis Samy Le MD [address] [place], [place] [phone] 02/14/2023 Samy Le Prediabetes R73.03 ; Annual physical exam Z00.00 ; Pure hypercholesterolemia E78.00 ; Transient ischemic attack (TIA) G45.9 ; PSA elevation R97.20 ; Colon cancer screening Z12.11 and Depression screening Z13.31 Samy Le MD [address] [place] [phone] 03/26/2023 Samy Le Cerebral meningioma D32.0 and Disorientation R41.0 Samy Le MD [address] [place] [phone] 02/07/2024 Samy Le Blood tests for rout ine general physical examination Z00.00 ; Pure hypercholesterolemia E78.00 and Prediabetes R73.03 Samy Le MD [address] [place] [phone] 03/07/2023 Samy Le Transient ischemic a ttack (TIA) G45.9 ASSESSMENTS Encounter Date Diagnosis Assessment Notes Treatment Notes Treatment Clinical Notes 02/14/2023 Annual physical exam (ICD-10 - Z00.00) labs reviewed and discussed with patient 02/14/2023 Prediabetes (ICD-10 - R73.03) stable, no need for medication at this time 03/26/2023 Disorientation (ICD- 10 - R41.0) no further episodes. maldonado negative will take a baby asa in case of tia 03/26/2023 Cerebral meningioma (ICD-10 - D32.0) reviewed recent MRI with patient , tiny lesion. may consider repeating mri in 3 years 02/07/2024 Pure hypercholestero lemia (ICD-10 - E78.00) 02/07/2024 [address] tests for [address] ine general physical examination (ICD-10 - Z00.00) 02/14/2023 Pure hypercholestero lemia (ICD-10 - E78.00) stable, will contnue current regiment 02/07/2024 Prediabetes (ICD-10 - R73.03) 03/07/2023 Transient ischemic a ttack (TIA) (ICD-10 - G45.9) 02/14/2023 Transient ischemic a ttack (TIA) (ICD-10 - G45.9) continue on asa/ us order faxed to [facility] CS dept MRI order faxed to [facility], pending diagnostic testing 02/14/2023 PSA elevation (ICD-1 0 - R97.20) referral back to dr castro 02/14/2023 Colon cancer screeni ng (ICD-10 - Z12.11) guaiac negative 02/14/2023 Depression screening (ICD-10 - Z13.31) negative screen 03/26/2023 Other Total time spent on the date of the encounter is 35 minutes including both face to face time spent and time spent reviewing documentation, studies and counseling the patient. PLAN OF TREATMENT Pending Test Test Name Order Date Electrocardiogram (EKG) 12/15/2015 Electrocardiogram (EKG) 12/20/2016 MRI BRAIN NO CONTRAST 02/14/2023 MRI BRAIN W&WO CONTRAST 03/07/2023 US CAROTID BILATERAL DOPPLER 02/14/2023 Complete Blood Count Auto Diff Comprehensive [place]. Panel Fast Lipid Panel 02/07/2024 PSA,Total (Free>4and<10) 02/07/2024 Microalbumin, Random 02/07/2024 Hemoglobin A1c 02/07/2024 UA ClnCatch+Micro w/rflx Cult 02/07/2024 Next Appt Details Provider Name:Samy mcleod, 02/21/2024 08:30:00 AM, [address] [place] [address], [address], [place], [place], [phone], Insurance Providers Payer Name Payer Address Payer Phone Subscriber Number Group Number Insured Name Patient Relationship to Insured Coverage Start Date Coverage End Date [facility] are [employer] [address] [address] [place] [address] [id number] Mauricio Horn Self - patient is the insured MEDICAL (GENERAL) HISTORY Medical History History ICD Code SD-2000 colonoscopy 2006 ; colonosco py 05/31/[address] Bower - repeat 5 years(2021):Colonoscopy 05/01/21 due n 5 yrs meningioma 2023. repeat mri with contras t 2026
--- OUTSIDE RECORDS SUMMARY | 2024-02-07 13:08 | XMS_ITS ---
Author Organization Samy Le MD Address [address] [place] [phone] Care Team Providers Care Wax Blender Name Role Phone Samy Le Primary Care Provider [phone] ALLERGIES Allergen (clinical drug ingredient) Drug/Non Drug Allergy documented on EMR Reaction Allergy Type Onset Date Status Penicillin G Benzathine Rash Drug Allergy Inactive REASON FOR VISIT 2 month/ must see MRI, NO Covid symptoms MEDICATIONS Medication SIG (Take, Route, Frequency, Duration) Notes Start Date End Date Status Vutadx-Qupoinmti-KYB Complex Orally Active Atorvastatin Calcium 20 MG TAKE 1 TABLET BY MOUTH ONCE DAILY Active Aspir-Low 81 MG 1 tablet Orally Once a day for 30 day(s) 03/26/2023 Active Melatonin 1 MG 1 capsule at bedtime as needed Orally Once a day for 30 day(s) Active Naprosyn 375 MG 1 tablet Orally Twic e a day for 30 day(s) 11/09/2013 Active Fish Oil 1000 MG 1 capsule Orally Onc e a day Active Multi Vitamin Mens Orally A ctive PROBLEMS Problem Type ICD Code Onset Dates Problem Status W/U Status Risk SNOMED Code Notes Problem Cerebral meningioma (D32.0) Active confirmed 603211263 VITAL SIGNS Blood pressure systolic 148 mm Hg 03/26/19 24 Blood pressure diastolic 70 mm Hg 024 Height 73.5 in 03/26/2023 Patient states weight is 232 Encounters Encounter Location Date Provider Diagnosis Samy Le MD [address] [place], [place] [phone] 03/26/2023 Samy Le Cerebral meningioma D32.0 and Disorientation R41.0 ASSESSMENTS Encounter Date Diagnosis Assessment Notes Treatment Notes Treatment Clinical Notes 03/26/2023 Cerebral meningioma (ICD-10 - D32.0) reviewed recent MRI with patient , tiny lesion. may consider repeating mri in 3 years 03/26/2023 Disorientation (ICD-10 - R41.0) no further episodes. maldonado negative will take a baby asa in case of tia 03/26/2023 Other Total time spen t on the date of the encounter is 35 minutes including both face to face time spent and time spent reviewing documentation, studies and counseling the patient. PLAN OF TREATMENT Medication Medication Name Sig Start Date Stop Date Notes Aspir-Low 81 MG 1 tablet Orally Once a day for 30 day(s) 0 03/26/2023 Treatment Notes Assessment Notes Cerebral meningioma reviewed recent MRI with patient , tiny lesion. may consider repeating mri in 3 years Disorientation no further episodes. maldonado negative will take a baby asa in case of tia Other Total time spent on the date of the encounter is 35 minutes including both face to face time spent and time spent reviewing documentation, studies and counseling the patient. Next Appt Details Provider Name:Samy mcleod, 02/21/2024 08:30:00 AM, [address] [facility], [address], [place], [place], [phone], Progress Notes * Examination Category Sub-Category Detail Notes General Examination GENERAL APPEARANCE: alert, w ell hydrated, in no distress , male HEAD: normocephalic HEART: no murmurs, rubs, ga llops, regular rate and rhythm LUNGS: no wheezes, rales, r honchi, good air movement, clear to auscultation bilaterally SKIN: good turgor
--- OUTSIDE RECORDS SUMMARY | 2024-02-07 13:08 | XMS_ITS ---
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 Lettering Machine Operator Name Role Phone Samy Le Primary Care Provider REASON FOR VISIT fasting yearly labs Encounters Encounter Location Date Provider Diagnosis aSmy Le MD [address] [place], [place] [phone] 02/07/2024 Samy Le Blood tests for rout ine general physical examination Z00.00 ; Pure hypercholesterolemia E78.00 and Prediabetes R73.03 ASSESSMENTS Encounter Date Diagnosis Assessment Notes Treatment Notes Treatment Clinical Notes 02/07/2024 [address] tests [address] ine general physical examination (ICD-10 - Z00.00) 02/07/2024 Pure hypercholestero lemia (ICD-10 - E78.00) 02/07/2024 Prediabetes (ICD-10 - R73.03) PLAN OF TREATMENT Pending Test Test Name Order Date Complete Blood Count Auto Diff 4 Comprehensive [place]. Panel Fast 4 Lipid Panel 02/07/2024 PSA,Total (Free>4and<10) 02/07/2024 Microalbumin, Random 02/07/2024 Hemoglobin A1c 02/07/2024 UA ClnCatch+Micro w/rflx Cult 02/07/2024 Next Appt Details Provider Name:Samy mcleod, 02/21/2024 08:30:00 AM, [address], [address], [place], [place], [phone],
--- OUTSIDE RECORDS SUMMARY | 2024-02-07 13:08 | XMS_ITS | Patient Health Record ---
Author Organization [facility] Address [address] [place] [address] Care Team Providers Care Technical Maintenance Specialist Name Role Phone Mimi REYNOSO, Samy Primary Care Provider Harrison Lynn Unavailable [phone] Brady Ma MD Unavailable Unavailable ALLERGIES No Known Allergies REASON FOR REFERRAL No Information MEDICATIONS Medication SIG (Take, Route, Frequency, Duration) Notes Start Date End Date Status Fish Oil 1000 MG 1 capsule Orally Onc e a day Active Atorvastatin Calcium 20 MG Oral for 90 Active Glucosamine Active Flaxseed (Linseed) A ctive Aspirin Adult Low Dose 81 MG 1 tablet Orally Once a day for 30 day(s) Active Multivitamin - 1 tablet Orally Once a day Active Melatonin Active IMMUNIZATIONS Vaccine Route Administration Date Status Comme nts Influenza Unknown 10/19/2020 Administered SOCIAL HISTORY Sex Assigned At : Social History Observation Description Sex Assigned At Unknown Alcohol Screen Question Answer Notes Did you have a drink containing alcohol in the p ast year? No Points 0 Interpretation Negative PROBLEMS Problem Type ICD Code Onset Dates Problem Status W/U Status Risk SNOMED Code Notes Problem Encounter for screening for malignant neoplasm of colon (Z12.11) Active confirmed 509062023 Problem Encounter for screening for malignant neoplasm of rectum (Z12.12) Active confirmed Screening fo r malignant neoplasm of rectum (513542253) Problem Preprocedural examination (Z01.818) Active confirmed 98645758 Problem Family history of colon cancer (Z80.0) Active confirmed 384488221 Problem Heme + stool (R19.5) Active confirmed 07734053 Problem Long-term use of aspirin therapy (Z79.82) Active confirmed 727038088 Problem Diverticulosis of colon (K57.30) Active confirmed Diverticulosi s of colon (141322538) PLAN OF TREATMENT Future Test Test Name Order Date COLONOSCOPY 04/19/2016 COLONOSCOPY 03/21/2021 Insurance Providers Payer Name Payer Address Payer Phone Subscriber Number Group Number Insured Name Patient Relationship to Insured Coverage Start Date Coverage End Date [facility] [id number] [place] [address] [id number] ZEESHAN HORN Self - patient is the insured MEDICAL (GENERAL) HISTORY Medical History History ICD Code 1999--[place]--Angioplasty/stent--no cardiac problems since then Denies DM,CVA,Lung disease,renal disease Hyperlipidemia Describes a negative colonoscopy in [facility] in approx 2006 Melanoma Colonoscopy in 04/2016 was negative Surgical History Surgery Date(Month/Year) Appendectomy 2014
--- OUTSIDE RECORDS SUMMARY | 2024-02-07 13:08 | XMS_ITS ---
Author Organization Samy Le MD Address [address] [place] [phone] Care Team Providers Care Professor Of Practice Name Role Phone Samy Le Primary Care Provider [phone] REASON FOR VISIT MRI with contrast Encounters Encounter Location Date Provider Diagnosis Samy Le MD [address] [place] [address] Drive [address] [place] [phone] 03/07/2023 Samy Le Transient ischemic attack (TIA) G45.9 ASSESSMENTS Encounter Date Diagnosis Assessment Notes Treatment Notes Treatment Clinical Notes 03/07/2023 Transient ischemic attack (TIA) (ICD-10 - G45.9) PLAN OF TREATMENT Pending Test Test Name Order Date MRI BRAIN W&WO CONTRAST 03/07/2023 Next Appt Details Provider Name:Samy mcleod, 02/21/2024 08:30:00 AM, [address] [place] [address], [address] [facility], [place], [place], [phone],
[2024-02-07 13:15] LABS: Basophils Percent Auto 0.4 % (0-2); Eosinophils Absolute Auto 0.3 X10*3/uL (0.0-0.4); Eosinophils Percent Auto 3.8 % (0-4); Hematocrit 46.8 % (42.0-52.0); Hemoglobin 15.7 g/dl (14.0-18.0); Imm Gran Abs Auto 0.02 X10*3/uL (0.00-0.03); Imm Gran Pct Auto 0.3 % (0.0-0.4); Lymphocytes Absolute Auto 1.9 X10*3/uL (1.2-4.9); Lymphocytes Percent Auto 26.3 % (20-40); Mean Corpuscular HGB Conc 33.5 g/dl (31.0-36.0); Mean Corpuscular Hemoglobin 29.4 pg (27.0-33.0); Mean Corpuscular Volume 87.6 fL (80.0-98.0); Mean Platelet Volume 9.9 fL (9.4-12.4); Monocytes Absolute Auto 0.7 X10*3/uL (0.1-1.2); Monocytes Percent Auto 8.8 % (2-11); Neutrophils Absolute Auto 4.5 x10*3/uL (2.0-8.3); Neutrophils Percent Auto 60.4 % (45-73); Platelet Count 252 X10*3/uL (160-400); Red Blood Count 5.34 X10*6/uL (4.60-5.80); Red Cell Distribution Width 12.8 % (11.0-16.0); White Blood Count 7.4 X10*3/uL (4.8-10.8)
[2024-02-07 13:28] LABS: Appearance Urine Clear; Color Urine Yellow; Glucose Urine UA Negative (Negative); Leukocyte Esterase Urine Negative (Negative); Nitrite Urine Negative (Negative); Specific Gravity - Urine 1.025 (1.005-1.025); Urine Blood Negative (Negative); Urine Ketones Negative (Negative); Urine Protein Negative (Neg-Trace)
[2024-02-07 13:35] LABS: Alanine Aminotransferase 24 U/L (0-40); Albumin Level 3.6 g/dL (3.5-5.0); Alkaline Phosphatase 119 U/L (39-117); Anion Gap 10 (12-20); Aspartate Amino Transferase 29 U/L (5-37); Bilirubin Total 1.8 mg/dL (0.0-1.0); Blood Urea Nitrogen 17 mg/dL (9-16); Calcium 8.4 mg/dL (8.4-10.2); Carbon Dioxide 26 mmol/L (22-29); Chloride 111 mmol/L (96-108); Cholesterol 109 mg/dL (<200); Estimated Glomerular Filt Rate > 60; Glucose Fasting 112 mg/dL (60-99); HDL Cholesterol 33 mg/dL (>40); LDL Cholesterol Calculated 65 mg/dL (<100); Potassium 4.3 mmol/L (3.3-5.1); Sodium 143 mmol/L (135-145); Total Protein 6.9 g/dL (6.5-8.0); Triglycerides 59 mg/dL (<150)
[2024-02-07 13:38] LABS: Estimated Average Glucose 126 mg/dL; Hemoglobin A1C 168.0768 umol/L
[2024-02-07 13:55] LABS: Creatinine Urine 161.45 mg/dL; Microalbum/Creatinine Ratio Ur 3.7 ug/mg cr (<30)
[2024-02-07 13:58] LABS: PSA,Total (Free>4and<10) 3.84 ng/mL (0.00-4.00)
== END 2024-02-07 13:06 | disposition home or self-care (01) ==
LOC: HO.LNP 13:05
PROVIDERS: Visit Provider Internal Medicine
DX: Z00.00 Encounter for general adult medical examination without abnormal findings (principal); E78.00 Pure hypercholesterolemia, unspecified; R73.03 Prediabetes; Z12.5 Encounter for screening for malignant neoplasm of prostate
CPT/HCPCS: 80053; 80061; 81003; 82043; 82570; 83036; 84153; 85025

== ENCOUNTER 2025-02-16 07:30 | Outpatient (REF) | payer MEDICARE, SELFPAY ==
--- OUTSIDE RECORDS SUMMARY | 2024-02-07 03:00 | XMS_ITS ---
Author Organization Samy Le MD Address [address] [place], [place] [phone] Care Team Providers Care Mortgage Loan Processing Clerk Name Role Phone Samy Le Primary Care Provider Results Component Value Reference Range Notes Complete Blood Count Auto Di ff Reviewed date:02/07/2024 04:24:03 PM Interpretation: Performing Lab:[facility], [address] [place] [phone] Notes/Report: White Blood Count 7.4 4.8-10.8 X10*3/uL Red Blood Count 5.34 4.60-5.80 X10*6/uL Hemoglobin 15.7 14.0-18.0 g/dl Hematocrit 46.8 42.0-52.0 % Mean Corpuscular Volume 87.6 80.0-98.0 fL Mean Corpuscular Hemoglobin 29.4 27.0-33.0 pg Mean Corpuscular HGB Conc 33.5 31.0-36.0 g/dl Red Cell Distribution Width 12.8 11.0-16.0 % Platelet Count 252 160-400 X10*3/uL Mean Platelet Volume 9.9 9.4-12.4 fL Neutrophils Percent Auto 60.4 45-73 % Imm Gran Pct Auto 0.3 0.0-0.4 % Lymphocytes Percent Auto 26.3 20-40 % Monocytes Percent Auto 8.8 2-11 % Eosinophils Percent Auto 3.8 0-4 % Basophils Percent Auto 0.4 0-2 % NRBC Pct Auto 0.0 0.0-0.2 /100WBC Neutrophils Absolute Auto 4.5 2.0-8.3 x10*3/u L Imm Gran Abs Auto 0.02 0.00-0.03 X10*3/uL Lymphocytes Absolute Auto 1.9 1.2-4.9 X10*3/u L Monocytes Absolute Auto 0.7 0.1-1.2 X10*3/uL Eosinophils Absolute Auto 0.3 0.0-0.4 X10*3/u L Basophils Absolute Auto 0.0 0.0-0.2 X10*3/uL NRBC Abs Auto 0.000 0.0-0.012 X10*3/uL Comprehensive [place]. Panel Fa st Reviewed date:02/07/2024 04:23:06 PM Interpretation: Performing Lab:[facility], [address] [place] [phone] Notes/Report: Sodium 143 135-145 mmol/L Potassium 4.3 3.3-5.1 mmol/L Slight Hemoly sis.Interpret result with caution. Chloride 111 96-108 mmol/L Carbon Dioxide 26 22-29 mmol/L Anion Gap 10 12-20 Blood Urea Nitrogen 17 9-16 mg/dL Creatinine 0.83 0.5-1.4 mg/dL Estimated Glomerular Filt Rate > 60 Chronic Kidney Disease: Estimated GFR < 60 mL/min/1.73m2 Severe Kidney Disease: Estimated GFR < 15 mL/min/1.73m2 Glucose Fasting 112 60-99 mg/dL A fasting glucose from 100-125 mg/dl is considered impaired (pre-diabetes). Calcium 8.4 8.4-10.2 mg/dL Bilirubin Total 1.8 0.0-1.0 mg/dL Aspartate Amino Transferase 29 5-37 U/L Slight Hemolysis.Interpret result with caution. Alanine Aminotransferase 24 0-40 U/L Total Protein 6.9 6.5-8.0 g/dL Albumin Level 3.6 3.5-5.0 g/dL Alkaline Phosphatase 119 39-117 U/L Lipid Panel Reviewed date:02/07/2024 04:19:04 PM Interpretation: Performing Lab:[facility], [address] [place] [phone] Notes/Report: Triglycerides 59 <150 mg/dL Desirable Triglyceride: less than 150 mg/dL Borderline High Triglyceride 150-199 mg/dL High Triglyceride: 200-499 mg/dL Very High Triglyceride: greater than or equal to 5OO mg/dL Cholesterol 109 <200 mg/dL Desirable Cholesterol: less than 200 mg/dL Borderline High Cholesterol: 200-239 mg/dL High Cholesterol: greater than 239 mg/dL LDL Cholesterol Calculated 65 <100 mg/dL Desirable LDL: less than 100 mg/dL Near Optimal/Above Optimal LDL: 110-129 mg/dL Borderline High LDL: 130-159 mg/dL High LDL: 160-189 mg/dL Very High LDL: greater than or equal to 190 mg/dL HDL Cholesterol 33 >40 mg/dL Desirable HDL: greater than 40 mg/dL Note: This HDL assay may give artificially low results in patients with liver disease. PSA,Total (Free>4and<10) Reviewed date:02/07/2024 04:20:21 PM Interpretation: Performing Lab:[address] [phone] Notes/Report: PSA,Total (Free>4and<10) 3.84 0.00-4.00 ng/mL A Free PSA was not performed: The percentage of Free PSA can be used to enhance the differentiation of prostate cancer from benign prostatic disease in subjects whose PSA levels are between 4.0 and 10.0 ng/mL. For subjects whose PSA levels are below 4.0 or above 10.0 ng/mL, the risk of prostate cancer is determined on the basis of the PSA alone. Therefore the % Free PSA is recommended only for those subjects whose PSA levels are between 4.0 and 10.0 ng/mL. PSA methodology: Qureshi Alinity i Chemiluminescent Microparticle Immunoassay (CMIA) Microalbumin, Random Reviewed date:02/07/2024 04:19:43 PM Interpretation: Performing Lab:[facility], [address] [place] [phone] Notes/Report: Creatinine Urine 161.45 Microalbumin Urine 6.0 Microalbum/Creatinine Ratio Ur 3.7 <30 ug/mg cr Albumin/Creatinine Ratio Reference Ranges: Normal: < 30 ug/mg creatinine Microalbuminuria: 30 - 300 ug/mg creatinine Clinical Albuminuria: > 300 ug/mg creatinine Hemoglobin A1c Reviewed date:02/07/2024 04:20:29 PM Interpretation: Performing Lab:[facility], [address] [place] [address] Notes/Report: Hemoglobin A1c % 6.0 <6.0 % Hemoglobin A1C Reference Range Adults: 4.8 - 6.0 % Non diabetic: < 6.0 % Goal: < 7.0 % Additional Action Suggested: > 8.0 % Note: Hemoglobin A1c results are invalid for patients with abnormal amounts of HbF. Blood transfusions may impact the HbA1c concentration in the patient sample. Estimated Average Glucose 126 eAG = Estimated average glucose which is %A1C expressed as average glucose, using the formula of the [id number] Average Glucose study (ADAG), Diabetes Care, Vol.31,#8, 2007 REASON FOR VISIT fasting yearly labs Encounters Encounter Location Date Provider Diagnosis Samy Le MD [address] [place] [address] [place] [phone] 02/07/2024 Samy Le Blood tests for rout ine general physical examination Z00.00 ; Pure hypercholesterolemia E78.00 and Prediabetes R73.03 Assessments Encounter Date Diagnosis (ICD Code) Assessment Notes Treatment Notes Treatment Clinical Notes Section Notes 02/07/2024 Blood tests for rout ine general physical examination (ICD-10 - Z00.00) 02/07/2024 Pure hypercholesterolemia (ICD-10 - E78.00) 02/07/2024 Prediabetes (ICD-10 - R73.03) Plan Of Treatment Next Appt Details Provider Name:Samy Garcia ier, 02/25/2025 08:30:00 AM, [address] [place] [address], Suite [facility], [place], [place], [phone], Progress Notes * Mauricio HORN MDOB:1950 (74 yo M)Acc No.[id number]:02/07/2024 Progress Note Patient: Umer Mauricio FAROOQ Provider: Hiro Le MD :1950 A ge:73 Y S ex:Male Date:02/07/2024 Address:[address] [place] [phone] Subjective: * Chief Complaints: * 1 . Fasting yearly labs. * Medical History: Objective: * Vitals: Assessment: * Assessment: 1. B lood tests for routine general physical examination - Z00.00 (Primary) 2 .?Pure hypercholesterolemia - E78.00 3 . P rediabetes - R73.03 ? Plan: * Treatment: 2. P ure hypercholesterolemia L AB: UA ClnCatch+Micro w/rflx Cult (Order Cancelled) L AB: Complete Blood Count Auto Diff (Collection Date & Time - 02/07/2024 08:00 AM) L AB: Comprehensive [place]. Panel Fast (Collection Date & Time - 02/07/2024 08:00 AM) L AB: Lipid Panel (Collection Date & Time - 02/07/2024 08:00 AM) L AB: PSA,Total (Free>4and<10) (Collection Date & Time - 02/07/2024 08:00 AM) L AB: Microalbumin, Random (Collection Date & Time - 02/07/2024 08:00 AM) L AB: Hemoglobin A1c (Collection Date & Time - 02/07/2024 08:00 AM) 3. P rediabetes L AB: UA ClnCatch+Micro w/rflx Cult (Order Cancelled) L AB: Complete Blood Count Auto Diff (Collection Date & Time - 02/07/2024 08:00 AM) L AB: Comprehensive [place]. Panel Fast (Collection Date & Time - 02/07/2024 08:00 AM) L AB: Lipid Panel (Collection Date & Time - 02/07/2024 08:00 AM) L AB: PSA,Total (Free>4and<10) (Collection Date & Time - 02/07/2024 08:00 AM) L AB: Microalbumin, Random (Collection Date & Time - 02/07/2024 08:00 AM) L AB: Hemoglobin A1c (Collection Date & Time - 02/07/2024 08:00 AM) * Procedure Codes: 3 6415 VENIPUNCT, ROUTINE* * * The named appointment provid er may or may not be the originator of this progress note, and it is not deemed complete until electronically signed by the appointment provider. Sign off status: Pending * Provider: Hiro Le MD Date: 1 04/09/2023 Generated for Osei lam/Da/eTmaevesmitting on: 02:22 PM EST
--- OUTSIDE RECORDS SUMMARY | 2024-02-21 03:30 | XMS_ITS ---
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 Phone Samy Le Primary Care Provider Allergies Allergen (clinical drug ingredient) Drug/Non Drug Allergy documented on EMR Reaction Allergy Type Onset Date Status Penicillin G Benzathine Rash Drug Allergy Inactive Results Component Value Reference Range Notes Occult Blood, Stool, Guaiac Reviewed date:02/21/2024 01:18:11 PM Interpretation:Negative Performing Lab: Notes/Report: Negative Occult Blood, Stool, Guaiac Neg REASON FOR VISIT annual visit Medications Medication SIG (Take, Route, Frequency, Duration) Notes Start Date End Date Status Melatonin 1 MG 1 capsule at bedtime as needed Orally Once a day for 30 day(s) Active Pqoxbx-Osomnbzzq-FCB Complex Orally Active Aspir-Low 81 MG 1 tablet Orally Once a day for 30 day(s) 03/26/2023 Active Naprosyn 375 MG 1 tablet Orally Twic e a day for 30 day(s) 11/09/2013 Active Atorvastatin Calcium 20 MG TAKE 1 TABLET BY MOUTH ONCE DAILY Active Fish Oil 1000 MG 1 capsule Orally Onc e a day Active Multi Vitamin Mens Orally A ctive Social History Tobacco Use: Social History Observation Description Date Details (start date - stop date) Never Smoker NA - NA Tobacco Use/Smoking Question Answer Notes Patient is a nonsmoker Additional Findings: Tobacco Non-User Cu rrent non-smoker, currently using no form of tobacco Alcohol Screen Question Answer Notes Did you have a drink containing alcohol in the p ast year? No Points 0 Interpretation Negative Vital Signs Blood pressure systolic 142 mm Hg 02/20/19 25 Blood pressure diastolic 64 mm Hg 025 Height 73.5 in 02/21/2024 Weight 244 lbs 02/21/2024 BMI 31.75 kg/m2 02/21/2024 weight is up 11 pounds since 02-14-23 Encounters Encounter Location Date Provider Diagnosis Samy Le MD [address] [place], [place] [phone] 02/21/2024 Samy Le Skin lesion of face L98.9 ; Annual physical exam Z00.00 ; Pure hypercholesterolemia E78.00 ; Prediabetes R73.03 ; Cerebral meningioma D32.0 ; Colon cancer screening Z12.11 and Depression screening Z13.31 Assessments Encounter Date Diagnosis (ICD Code) Assessment Notes Treatment Notes Treatment Clinical Notes Section Notes 02/21/2024 Skin lesion of face (ICD-10 - L98.9) referral to dermatology/ info given to patient to call and make his own appt 02/21/2024 Annual physical exam (ICD-10 - Z00.00) labs reviewed and discussed with patient 02/21/2024 Pure hypercholesterolemia (ICD-10 - E78.00) doing well, will continue current regiment 02/21/2024 Prediabetes (ICD-10 - R73.03) advised on diet 02/21/2024 Cerebral meningioma (ICD-10 - D32.0) will repeat mri next year/ order printed and put in future folder 02/21/2024 Colon cancer screeni ng (ICD-10 - Z12.11) guaiac negative 02/21/2024 Depression screening (ICD-10 - Z13.31) negative screen Plan Of Treatment Medication Medication Name Sig Start Date Stop Date Notes Atorvastatin Calcium 20 MG TAKE 1 TABLET BY MOUTH ONCE DAILY Treatment Notes Assessment Notes Skin lesion of face referral to dermatol ogy/ info given to patient to call and make his own appt Annual physical exam labs reviewed and d iscussed with patient Pure hypercholesterolemia doing well, wi ll continue current regiment Prediabetes advised on diet Cerebral meningioma will repeat mri next year/ order printed and put in future folder Colon cancer screening guaiac negative Depression screening negative screen Future Test Test Name Order Date MRI BRAIN W&WO CONTRAST 02/20/2025 Next Appt Details Provider Name:Samy Garcia ier, 02/25/2025 08:30:00 AM, [address], [address], [place], [place], [phone], Progress Notes * Mauricio HORN MDOB:1950 (73 yo M)Acc No.[id number]:02/21/2024 Progress Notes Patient: Mauricio Florez Provider: Hiro Le MD :1950 A ge:73 Y S ex:Male Date:02/21/2024 Address:[address] [place] [id number] Subjective: * Chief Complaints: * A nnual visit * HPI: D epression Screening: PHQ-9 L ittle interest or pleasure in doing things N ot at all, F eeling down, depressed, or hopeless N ot at all, T rouble falling or staying asleep, or sleeping too much N ot at all, F eeling tired or having little energy N ot at all, P oor appetite or overeating N ot at all, F eeling bad about yourself or that you are a failure, or have let yourself or your family down N ot at all, T rouble concentrating on things, such as reading the newspaper or watching television N ot at all, M oving or speaking so slowly that other people could have noticed; or the opposite, being so fidgety or restless that you have been moving around a lot more than usual N ot at all, T houghts that you would be better off or of hurting yourself in some way N ot at all, T otal Score 0 . I nterpretation and Intervention D epression Screening Findings N egative, F ollow-Up for Depression : review of PHQ-9 found negative result, no follow-up needed. C ommunication Needs: Communication Needs D oes the patient have a hearing impairment N o, D oes the patient have a vision impairment? Y es, I f yes, what is the vision impairment? G lasses, D oes the patient have a cognition impairment? N o. F all Risk: History H ave you had any falls with injury in the past year? N o, H ave you had two or more falls in the past year? N o. S JACQUI Questions: SDOH Questions I n the past year have you been worried about losing housing? N o, I n the past year have you or any family members you live with been unable to get any of the following when it was really needed? Check all that apply: N one. S ymptom(s): patient is a 73 yo male here for annual visit with review of recent labs and follow up of chronic issues. * ROS: G eneral/Constitutional: Patient denies f atigue , headache. C hange in appetite?denies. C hills d enies. F ever d enies. O phthalmologic: Blurred vision d enies. D ischarge d enies. P ain d enies. E NT: Patient denies d ecreased sense of smell , any loss of taste , sore throat. D ecreased hearing d enies. S ore throat d enies. S wollen glands d enies. E ndocrine: Cold intolerance d enies. E xcessive thirst d enies. H eat intolerance d enies. W eight loss d enies. R espiratory: Cough d enies. S hortness of breath at rest d enies. S hortness of breath with exertion d enies. W heezing d enies. C ardiovascular: Chest pain at rest d enies. C hest pain with exertion?denies. I rregular heartbeat d enies. S hortness of breath d enies. ? G astrointestinal: Abdominal pain d enies. C hange in bowel habits d enies. D iarrhea d enies. N ausea d enies. R ectal bleeding d enies. V omiting d enies . G enitourinary: Blood in urine d enies. D ifficulty urinating d enies. F requent urination d enies. M usculoskeletal: Patient denies m uscle aches. P ainful joints d enies. W eakness d enies. P eripheral Vascular: Patient denies r ed and blue toes. S kin: Dry skin d enies. I tching d enies. D enies?Mole(s), changes in moles, new moles or any lesions of concern. D enies P hotosensitivity. R john d enies. N eurologic: Dizziness d enies. F ainting d enies. H eadache?denies. * Medical History: * Surgical History: * Hospitalization/Major Diagno stic Procedure: * Family History: F ather: 94 yrs, diagnosed with Hypertension. M other: 83 yrs, diagnosed with Cancer. 6 brother(s) . . Mother-Stomach cancer Father- Pneumonia,health/substance abuse family history Brother was Paranoid, No pertinent family medical history, No pertinent family medical history. * Social History: T obacco Use: T obacco Use/Smoking P atient is a n onsmoker, A dditional Findings: Tobacco Non-User C urrent non-smoker, currently using no form of tobacco. D rugs/Alcohol: A lcohol Screen D id you have a drink containing alcohol in the past year? N o, P oints 0 , I nterpretation N egative. M iscellaneous: n o Caffeine, frequency:. no Children. no Community involvements. Exercise: yes, occasional sit ups, lift weights , bike rides for 1 hour walks in the house. Housing: owning. Living with: alone. Marital status: single. Occupation: works full-time. Pets: none. no Travel outside of the [place]. * Medications: T akingMulti Vitamin Mens Tablet Orally Fish Oil 1000 MG Capsule 1 capsule Orally Once a pfdTmljhg-[place]vyviik[place]-YND Complex Tablet Orally Melatonin 1 MG Capsule 1 capsule at bedtime as needed Orally Once a dayNaprosyn 375 MG Tablet 1 tablet Orally Twice a dayAspir-Low 81 MG Tablet Delayed Release 1 tablet Orally Once a dayAtorvastatin Calcium 20 MG Tablet TAKE 1 TABLET BY MOUTH ONCE DAILY Medication List reviewed and reconciled with the patientTaking Multi Vitamin Mens Tablet Orally Taking Fish Oil 1000 MG Capsule 1 capsule Orally Once a dayTaking Imgdtw-Qbxqubvrr-QCW Complex Tablet Orally Taking Melatonin 1 MG Capsule 1 capsule at bedtime as needed Orally Once a dayTaking Naprosyn 375 MG Tablet 1 tablet Orally Twice a dayTaking Aspir-Low 81 MG Tablet Delayed Release 1 tablet Orally Once a dayTaking Atorvastatin Calcium 20 MG Tablet TAKE 1 TABLET BY MOUTH ONCE DAILY Medication List reviewed and reconciled with the patient * Allergies: N .K.D.A.yes[Allergies Verified] Objective: * Vitals: H t: 73.5, Wt:244, BMI:31.75, BP:142/64, Repeat BP:132/70 weight is up 11 pounds since 02-14-23. * P ast Orders: L ab:UA CC w/rflx Micro + Cult (Order Date - 02/07/2024) (Collection Date - 02/07/2024) Value Reference Range Color Urine Yellow - Appearance Urine Clear - PH 5.0 5.0-9.0 - Glucose Urine UA Negative Negative - mg/dL Urine Blood Negative Negative - Specific [place] - Urine 1.025 1.005-1.025 - Urine Protein Negative Neg-Trace - mg/dL Urine Ketones Negative Negative - mg/dL Nitrite Urine Negative Negative - Leukocyte Esterase Urine Negative Negative - L ab:Comprehensive [place]. Panel Fast (Order Date - 02/07/2024) (Collection Date - 02/07/2024) Value Reference Range Sodium 143 135-145 - mmol/L Bilirubin Total 1.8 H 0.0-1.0 - mg/dL Aspartate Amino Transferase 29 5-37 - U/L Alanine Aminotransferase 24 0-40 - U/L Total Protein 6.9 6.5-8.0 - g/dL Albumin Level 3.6 3.5-5.0 - g/dL Alkaline Phosphatase 119 H 39-117 - U/L Potassium 4.3 3.3-5.1 - mmol/L Chloride 111 H 96-108 - mmol/L Carbon Dioxide 26 22-29 - mmol/L Anion Gap 10 L 12-20 - Blood Urea Nitrogen 17 H 9-16 - mg/dL Creatinine 0.83 0.5-1.4 - mg/dL Estimated Glomerular Filt Rate > 60 - Glucose Fasting 112 H 60-99 - mg/dL Calcium 8.4 8.4-10.2 - mg/dL L ab:Lipid Panel (Order Date - 02/07/2024) (Collection Date - 02/07/2024) Value Reference Range Triglycerides 59 <150 - mg/dL Cholesterol 109 <200 - mg/dL LDL Cholesterol Calculated 65 <100 - mg/dL HDL Cholesterol 33 L >40 - mg/dL L ab:PSA,Total (Free>4and<10) (Order Date - 02/07/2024) (Collection Date - 02/07/2024) Value Reference Range PSA,Total (Free>4and<10) 3.84 0.00-4.00 - ng/ mL L ab:Microalbumin, Random (Order Date - 02/07/2024) (Collection Date - 02/07/2024) Value Reference Range Creatinine Urine 161.45 - mg/dL Microalbumin Urine 6.0 - mg/L Microalbum Creatinine Ratio Ur 3.7 <30 - ug/ mg cr L ab:Hemoglobin A1c (Order Date - 02/07/2024) (Collection Date - 02/07/2024) Value Reference Range Hemoglobin A1c % 6.0 <6.0 - % Estimated Average Glucose 126 - mg/dL L ab:Complete Blood Count Auto Diff (Order Date - 02/07/2024) (Collection Date - 02/07/2024) Value Reference Range White Blood Count 7.4 4.8-10.8 - X10*3/uL Red Blood Count 5.34 4.60-5.80 - X10*6/uL Hemoglobin 15.7 14.0-18.0 - g/dl Hematocrit 46.8 42.0-52.0 - % Mean Corpuscular Volume 87.6 80.0-98.0 - fL Mean Corpuscular Hemoglobin 29.4 27.0-33.0 - pg Mean Corpuscular HGB Conc 33.5 31.0-36.0 - g/ dl Red Cell Distribution Width 12.8 11.0-16.0 - % Platelet Count 252 160-400 - X10*3/uL Mean Platelet Volume 9.9 9.4-12.4 - fL Neutrophils Percent Auto 60.4 45-73 - % Imm Gran Pct Auto 0.3 0.0-0.4 - % Lymphocytes Percent Auto 26.3 20-40 - % Monocytes Percent Auto 8.8 2-11 - % Eosinophils Percent Auto 3.8 0-4 - % Basophils Percent Auto 0.4 0-2 - % NRBC Pct Auto 0.0 0.0-0.2 - /100WBC Neutrophils Absolute Auto 4.5 2.0-8.3 - x10* 3/uL Imm Gran Abs Auto 0.02 0.00-0.03 - X10*3/uL Lymphocytes Absolute Auto 1.9 1.2-4.9 - X10* 3/uL Monocytes Absolute Auto 0.7 0.1-1.2 - X10*3/ uL Eosinophils Absolute Auto 0.3 0.0-0.4 - X10* 3/uL Basophils Absolute Auto 0.0 0.0-0.2 - X10*3/ uL NRBC Abs Auto 0.000 0.0-0.012 - X10*3/uL * Examination: G eneral Examination: GENERAL APPEARANCE: w ell developed, well nourished, in no acute distress. HEAD: n ormocephalic, atraumatic. EYES: p upils equal, round, reactive to light and accommodation, sclera non-icteric. EARS: n ormal. ORAL CAVITY: m ucosa moist. THROAT: c lear. NECK/THYROID: n katharine supple, full range of motion, no cervical lymphadenopathy, no bruits. SKIN: w arm and dry, no suspicious lesions , abnormal eyelids with multiple lesions. HEART: r egular rate and rhythm, S1, S2 normal, no murmurs.? LUNGS: c lear to auscultation bilaterally. ABDOMEN: s oft, nontender, nondistended, bowel sounds present, normal, no organomegaly , no masses palpable. RECTAL EXAM: n ormal tone, no external hemorrhoids, no masses palpable, prostate normal, stool guaiac negative. MALE GENITOURINARY: u ncircumcised , no testicular mass , testes descended bilaterally. EXTREMITIES: n o clubbing, cyanosis, or edema. NEUROLOGIC: n onfocal, motor strength normal upper and lower extremities, sensory exam intact. Assessment: * Assessment: 1. A nnual physical exam - Z00.00 (Primary) 2 . S kin lesion of face - L98.9 3 .?Pure hypercholesterolemia - E78.00 4 . P rediabetes - R73.03 5 . C erebral meningioma - D32.0 6 . C olon cancer screening - Z12.11 7 . D epression screening - Z13.31? Plan: * Treatment: 2. S kin lesion of face Notes: referral to dermatology/ info given to patient to call and make his own appt 3. P ure hypercholesterolemia Continue Atorvastatin Calcium Tablet, 20 MG, TAKE 1 TABLET BY MOUTH ONCE DAILY. Notes: doing well, will continue current regiment 4. P rediabetes Notes: advised on diet 5. C erebral meningioma I maging: MRI BRAIN W&WO CONTRAST (Ordered for 02/20/2025) Notes: will repeat mri next year/ order printed and put in future folder 6. C olon cancer screening L AB: Occult Blood, Stool, Guaiac N egative Value Reference Range O ccult Blood, Stool, Guaiac Neg Notes: guaiac negative??7.?Depression screening? Notes: negative screen?? * Procedure Codes: 8 2270 TEST FOR BLOOD, FECES * * Sign off status: Completed true * Provider: Hiro Le MD Date: 0 02/21/2024 Generated for Osei lam/Da/Dedrick on: 1 02:22 PM EST History and Physical Notes * HPI (History of Present Illness) Category Sub-Category Detail Notes Category Not es Symptom(s) patient is a 73 yo male here for annual visit with review of recent labs and follow up of chronic issues. Depression Screening PHQ-9 Little inte rest or pleasure in doing things: Not at all Feeling down, depressed, or hopeless: No t at all Trouble falling or staying asleep, or sl eeping too much: Not at all Feeling tired or having little energy: N ot at all Poor appetite or overeating: Not at all Feeling bad about yourself o r that you are a failure, or have let yourself or your family down: Not at all Trouble concentrating on thi ngs, such as reading the newspaper or watching television: Not at all Moving or speaking so slowly that other people could have noticed; or the opposite, being so fidgety or restless that you have been moving around a lot more than usual: Not at all Thoughts that you would be b monico off or of hurting yourself in some way: Not at all Total Score: 0 Interpretation and Intervention Depression Zaida laura Findings: Negative Follow-Up for Depression: : review of PH Q-9 found negative result, no follow-up needed SDOH Questions SDOH Questions In the past year have you been worried about losing housing?: No In the past year have you or any family members you live with been unable to get any of the following when it was really needed? Check all that apply:: None Fall Risk History Have you had any falls with injury i n the past year?: No Have you had two or more falls in the year?: No Communication Needs Communication Needs Does the patient have a hearing impairment: No Does the patient have a vision impairmen t?: Yes If yes, what is the vision impairment?: Glasses Does the patient have a cognition impair ment?: No Examination Category Sub-Category Detail Notes Category Not es General Examination GENERAL APPEARANCE: well dev eloped, well nourished, in no acute distress HEAD: normocephalic, atrau matic EYES: pupils equal, round, reactive to light and accommodation, sclera non-icteric EARS: normal THROAT: clear NECK/THYROID: neck supple, full ra nge of motion, no cervical lymphadenopathy, no bruits HEART: regular rate and rhy thm, S1, S2 normal, no murmurs LUNGS: clear to auscultatio n bilaterally ABDOMEN: soft, nontender, non distended, bowel sounds present, normal, no organomegaly , no masses palpable NEUROLOGIC: nonfocal, motor stre ngth normal upper and lower extremities, sensory exam intact SKIN: warm and dry, no chelsey picious lesions , abnormal eyelids with multiple lesions EXTREMITIES: no clubbing, cyanosi s, or edema MALE GENITOURINARY: uncircumcised , no t esticular mass , testes descended bilaterally RECTAL EXAM: normal tone, no exte rnal hemorrhoids, no masses palpable, prostate normal, stool guaiac negative ORAL CAVITY: mucosa moist
--- OUTSIDE RECORDS SUMMARY | 2024-09-17 05:20 | XMS_ITS ---
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 Role Phone Samy Le Primary Care Provider REASON FOR VISIT REFILL ATORVASTATIN Medications Medication SIG (Take, Route, Frequency, Duration) Notes Start Date End Date Status Atorvastatin Calcium 20 MG 1 tablet Oral ly Once a day for 90 days Active Encounters Encounter Location Date Provider Diagnosis Samy Le MD [address] [place] [phone] 09/17/2024 Samy Le Pure hypercholestero lemia E78.00 Assessments Encounter Date Diagnosis (ICD Code) Assessment Notes Treatment Notes Treatment Clinical Notes Section Notes 09/17/2024 Pure hypercholesterolemia (ICD-10 - E78.00) Plan Of Treatment Medication Medication Name Sig Start Date Stop Date Notes Atorvastatin Calcium 20 MG 1 tablet Oral ly Once a day for 90 days Next Appt Details Provider Name:Samy Garcia ier, 02/25/2025 08:30:00 AM, [address], Suite [facility], [place], [place], [phone], Progress Notes * Mauricio HORN MDOB:1950 (74 yo M)Acc No.[id number]:09/17/2024 Patient: Umer Mauricio FAROOQ :1950 A ge:74 Y S ex:Male Address:[address] [place] [address], [phone] * Refills Refill Atorvastatin Calcium Tablet, 20 MG, Orally, 90 Tablet, 1 tablet, Once a day, 90 days, Refills=3 * true * Date: Generated for Osei lam/Da/Dedrick on: 02:22 PM EST
--- OUTSIDE RECORDS SUMMARY | 2025-02-05 05:23 | XMS_ITS ---
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 Role Phone Samy Le Primary Care Provider REASON FOR VISIT MRI Brain w& W/O contrast due Encounters Encounter Location Date Provider Diagnosis Samy Le MD [address] [place] [address] [place] [phone] 02/05/2025 Samy eL Plan Of Treatment Next Appt Details Provider Name:Samy Garcia ier, 02/25/2025 08:30:00 AM, [address] [place] [address], Suite [facility], [place], [place], [phone], Progress Notes * Mauricio HORN MDOB:1950 (74 yo M)Acc No.[id number]:02/05/2025 Patient: Mauricio PAEZ :1950 A ge:74 Y S ex:Male Address:[address] [place] [address], [phone] * * Date:
--- OUTSIDE RECORDS SUMMARY | 2025-02-16 02:30 | XMS_ITS ---
Author Organization Samy Le MD Address [address] [place], [place] [id number] Care Team Providers Care Golf Superintendent Name Role Phone Samy Le Primary Care Provider Results Component Value Reference Range Notes Comprehensive [place]. Panel Fa st (Not yet reviewed by provider) Interpretation: Performing Lab:[facility], [address] [place] [address] Notes/Report: Sodium 143 135-145 mmol/L Potassium 4.5 3.3-5.1 mmol/L Slight Hemolysis.Interpret result with caution. Chloride 115 96-108 mmol/L Carbon Dioxide 21 22-29 mmol/L Anion Gap 12 12-20 Blood Urea Nitrogen 22 9-16 mg/dL Creatinine 0.88 0.5-1.4 mg/dL Estimated Glomerular Filt Rate > 60 Chronic Kidney Disease: Estimated GFR < 60 mL/min/1.73m2 Severe Kidney Disease: Estimated GFR < 15 mL/min/1.73m2 Glucose Fasting 106 60-99 mg/dL A fasting glucose from 100-125 mg/dl is considered impaired (pre-diabetes). Calcium 8.3 8.4-10.2 mg/dL Bilirubin Total 1.2 0.0-1.0 mg/dL Aspartate Amino Transferase 29 5-37 U/L Slight Hemolysis.Interpret result with caution. Alanine Aminotransferase 18 0-40 U/L Total Protein 6.6 6.5-8.0 g/dL Albumin Level 3.7 3.5-5.0 g/dL Alkaline Phosphatase 98 39-117 U/L PSA,Total (Free>4and<10) (No t yet reviewed by provider) Interpretation: Performing Lab:[facility], [address] [place] [phone] Notes/Report: PSA,Total (Free>4and<10) 4.28 0.00-4.00 ng/mL PSA methodology: Qureshi Alinity i Chemiluminescent Microparticle Immunoassay (CMIA) UA ClnCatch+Micro w/rflx Cul t (Not yet reviewed by provider) Interpretation: Performing Lab:[facility], [address] [place] [phone] Notes/Report: Urine, Clean Catch Color Urine Yellow Appearance Urine Clear PH 5.0 5.0-9.0 Glucose Urine UA Negative Negative mg/dL Urine Blood Negative Negative Specific [place] - Urine 1.020 1.005-1.025 Urine Protein Negative Neg-Trace mg/dL Urine Ketones Negative Negative mg/dL Nitrite Urine Negative Negative Leukocyte Esterase Urine Moderate (2+) Negative RBC Urine 0-2 0-2 /HPF WBC Urine >50 0-5 /HPF Squamous Epithelial Cell Urine 0-2 0-2 /HPF Bacteria Urine 4+ None Seen Hyaline Casts Urine 0-2 0-2 /LPF Complete Blood Count Auto Di ff Reviewed date:02/16/2025 12:47:31 PM Interpretation: Performing Lab:[facility], [address] [place] [phone] Notes/Report: White Blood Count 6.4 4.8-10.8 X10*3/uL Red Blood Count 4.99 4.60-5.80 X10*6/uL Hemoglobin 14.8 14.0-18.0 g/dl Hematocrit 43.6 42.0-52.0 % Mean Corpuscular Volume 87.4 80.0-98.0 fL Mean Corpuscular Hemoglobin 29.7 27.0-33.0 pg Mean Corpuscular HGB Conc 33.9 31.0-36.0 g/dl Red Cell Distribution Width 13.0 11.0-16.0 % Platelet Count 232 160-400 X10*3/uL Mean Platelet Volume 10.2 9.4-12.4 fL Neutrophils Percent Auto 55.0 45-73 % Imm Gran Pct Auto 0.3 0.0-0.4 % Lymphocytes Percent Auto 29.7 20-40 % Monocytes Percent Auto 8.9 2-11 % Eosinophils Percent Auto 5.3 0-4 % Basophils Percent Auto 0.8 0-2 % NRBC Pct Auto 0.0 0.0-0.2 /100WBC Neutrophils Absolute Auto 3.5 2.0-8.3 x10*3/u L Imm Gran Abs Auto 0.02 0.00-0.03 X10*3/uL Lymphocytes Absolute Auto 1.9 1.2-4.9 X10*3/u L Monocytes Absolute Auto 0.6 0.1-1.2 X10*3/uL Eosinophils Absolute Auto 0.3 0.0-0.4 X10*3/u L Basophils Absolute Auto 0.1 0.0-0.2 X10*3/uL NRBC Abs Auto 0.000 0.0-0.012 X10*3/uL Lipid Panel Reviewed date:02/16/2025 12:42:05 PM Interpretation: Performing Lab:[address] [phone] Notes/Report: Triglycerides 48 <150 mg/dL Desirable Triglyceride: less than 150 mg/dL Borderline High Triglyceride 150-199 mg/dL High Triglyceride: 200-499 mg/dL Very High Triglyceride: greater than or equal to 5OO mg/dL Cholesterol 107 <200 mg/dL Desirable Cholesterol: less than 200 mg/dL Borderline High Cholesterol: 200-239 mg/dL High Cholesterol: greater than 239 mg/dL LDL Cholesterol Calculated 59 <100 mg/dL Desirable LDL: less than 100 mg/dL Near Optimal/Above Optimal LDL: 110-129 mg/dL Borderline High LDL: 130-159 mg/dL High LDL: 160-189 mg/dL Very High LDL: greater than or equal to 190 mg/dL HDL Cholesterol 39 >40 mg/dL Desirable HDL: greater than 40 mg/dL Note: This HDL assay may give artificially low results in patients with liver disease. Microalbumin, Random Reviewed date:02/16/2025 12:55:22 PM Interpretation: Performing Lab:[address] [address] Notes/Report: Creatinine Urine 120.82 Microalbumin Urine 15.0 Microalbum/Creatinine Ratio Ur 12.4 <30 ug/mg cr Albumin/Creatinine Ratio Reference Ranges: Normal: < 30 ug/mg creatinine Microalbuminuria: 30 - 300 ug/mg creatinine Clinical Albuminuria: > 300 ug/mg creatinine Hemoglobin A1c Reviewed date:02/16/2025 12:41:19 PM Interpretation: Performing Lab:[facility], [address] [place] [phone] Notes/Report: Hemoglobin A1c % 5.8 <6.0 % Hemoglobin A1C Reference Range Adults: 4.8 - 6.0 % Non diabetic: < 6.0 % Goal: < 7.0 % Additional Action Suggested: > 8.0 % Note: Hemoglobin A1c results are invalid for patients with abnormal amounts of HbF. Blood transfusions may impact the HbA1c concentration in the patient sample. Estimated Average Glucose 120 eAG = Estimated average glucose which is %A1C expressed as average glucose, using the formula of the E4A-Upskirc Average Glucose study (ADAG), Diabetes Care, Vol.31,#8, 2007 REASON FOR VISIT yearly fasting labs Encounters Encounter Location Date Provider Diagnosis Samy Le MD [address] [place] [id number] 02/16/2025 Samy Le Blood tests for rout ine general physical examination Z00.00 ; Pure hypercholesterolemia E78.00 and Prediabetes R73.03 Assessments Encounter Date Diagnosis (ICD Code) Assessment Notes Treatment Notes Treatment Clinical Notes Section Notes 02/16/2025 Blood tests for rout ine general physical examination (ICD-10 - Z00.00) 02/16/2025 Pure hypercholesterolemia (ICD-10 - E78.00) 02/16/2025 Prediabetes (ICD-10 - R73.03) Plan Of Treatment Pending Test Test Name Order Date Comprehensive [place]. Panel Fast 5 PSA,Total (Free>4and<10) 02/16/2025 UA ClnCatch+Micro w/rflx Cult 02/16/2025 Next Appt Details Provider Name:Samy mcleod, 02/25/2025 08:30:00 AM, [address], [address], [place], [place], [id number], Progress Notes * Mauricio HORN MDOB:1950 (74 yo M)Acc No.[id number]:02/16/2025 Progress Note Patient: Mauricio PAEZ Provider: Hiro Le MD :1950 A ge:74 Y S ex:Male Date:02/16/2025 Address:[address] [place] [address] SHY [id number] Subjective: * Chief Complaints: * 1 . Yearly fasting labs. * Medical History: Objective: * Vitals: Assessment: * Assessment: 1. B lood tests for routine general physical examination - Z00.00 (Primary) 2 .?Pure hypercholesterolemia - E78.00 3 . P rediabetes - R73.03 ? Plan: * Treatment: 2. P ure hypercholesterolemia L AB: Comprehensive [place]. Panel Fast (Collection Date & Time - 02/16/2025 07:30 AM) L AB: PSA,Total (Free>4and<10) (Collection Date & Time - 02/16/2025 07:30 AM) L AB: UA ClnCatch+Micro w/rflx Cult (Collection Date & Time - 02/16/2025 07:30 AM) L AB: Complete Blood Count Auto Diff (Collection Date & Time - 02/16/2025 07:30 AM) L AB: Lipid Panel (Collection Date & Time - 02/16/2025 07:30 AM) L AB: Microalbumin, Random (Collection Date & Time - 02/16/2025 07:30 AM) L AB: Hemoglobin A1c (Collection Date & Time - 02/16/2025 07:30 AM) 3. P rediabetes L AB: Comprehensive [place]. Panel Fast (Collection Date & Time - 02/16/2025 07:30 AM) L AB: PSA,Total (Free>4and<10) (Collection Date & Time - 02/16/2025 07:30 AM) L AB: UA ClnCatch+Micro w/rflx Cult (Collection Date & Time - 02/16/2025 07:30 AM) L AB: Complete Blood Count Auto Diff (Collection Date & Time - 02/16/2025 07:30 AM) L AB: Lipid Panel (Collection Date & Time - 02/16/2025 07:30 AM) L AB: Microalbumin, Random (Collection Date & Time - 02/16/2025 07:30 AM) L AB: Hemoglobin A1c (Collection Date & Time - 02/16/2025 07:30 AM) * Procedure Codes: 3 6415 VENIPUNCT, ROUTINE* * * The named appointment provid er may or may not be the originator of this progress note, and it is not deemed complete until electronically signed by the appointment provider. Sign off status: Pending * Provider: Hiro Le MD Date: Generated for Osei lam/Da/Monikaitting on: 02:22 PM EST
[2025-02-16 10:47] LABS: MANUAL DIFF FLAG NO
[2025-02-16 11:12] LABS: Hematocrit 43.6 % (42.0-52.0); Hemoglobin 14.8 g/dl (14.0-18.0); Imm Gran Abs Auto 0.02 X10*3/uL (0.00-0.03); Imm Gran Pct Auto 0.3 % (0.0-0.4); Lymphocytes Absolute Auto 1.9 X10*3/uL (1.2-4.9); Mean Corpuscular HGB Conc 33.9 g/dl (31.0-36.0); Mean Corpuscular Hemoglobin 29.7 pg (27.0-33.0); Mean Corpuscular Volume 87.4 fL (80.0-98.0); NRBC Abs Auto 0.000 X10*3/uL (0.0-0.012); NRBC Pct Auto 0.0 /100WBC (0.0-0.2); Platelet Count 232 X10*3/uL (160-400); Red Blood Count 4.99 X10*6/uL (4.60-5.80); White Blood Count 6.4 X10*3/uL (4.8-10.8)
[2025-02-16 11:34] LABS: Appearance Urine Clear; Glucose Urine UA Negative (Negative); PH 5.0 (5.0-9.0); Specific Gravity - Urine 1.020 (1.005-1.025); UMIC TRIGGER UACC YES
[2025-02-16 11:42] LABS: UACC Culture Trigger YES
[2025-02-16 11:52] LABS: Microalbum/Creatinine Ratio Ur 12.4 ug/mg cr (<30)
[2025-02-16 12:18] LABS: PSA,Total (Free>4and<10) 4.28 ng/mL (0.00-4.00)
[2025-02-16 12:35] LABS: Alanine Aminotransferase 18 U/L (0-40); Albumin Level 3.7 g/dL (3.5-5.0); Alkaline Phosphatase 98 U/L (39-117); Anion Gap 12 (12-20); Aspartate Amino Transferase 29 U/L (5-37); Blood Urea Nitrogen 22 mg/dL (9-16); Calcium 8.3 mg/dL (8.4-10.2); Carbon Dioxide 21 mmol/L (22-29); Chloride 115 mmol/L (96-108); Cholesterol 107 mg/dL (<200); Estimated Glomerular Filt Rate > 60; HDL Cholesterol 39 mg/dL (>40); Potassium 4.5 mmol/L (3.3-5.1); Sodium 143 mmol/L (135-145); Total Protein 6.6 g/dL (6.5-8.0); Triglycerides 48 mg/dL (<150)
--- OUTSIDE RECORDS SUMMARY | 2025-02-16 14:22 | XMS_ITS | Patient Health Record ---
Author Organization Samy Le MD Address [address] [place], [place] [id number] Care Team Providers Care Flow Specialist Name Role Phone Samy Le Primary Care Provider Allergies Allergen (clinical drug ingredient) Drug/Non Drug Allergy documented on EMR Reaction Allergy Type Onset Date Status Penicillin G Benzathine Rash Drug Allergy Inactive Results Component Value Reference Range Notes Comprehensive [place]. Panel Fa st (Not yet reviewed by provider) Interpretation: Performing Lab:[facility], [address] [place] [address] Notes/Report: Sodium 143 135-145 mmol/L Potassium 4.5 [...] t yet reviewed by provider) Interpretation: Performing Lab:[facility], [address] [place] [phone] Notes/Report: PSA,Total (Free>4and<10) 4.28 0.00-4.00 ng/mL PSA methodology: Qureshi Alinity i Chemiluminescent Microparticle Immunoassay (CMIA) UA ClnCatch+Micro w/rflx Cul t (Not yet reviewed by provider) Interpretation: Performing Lab:[facility], [address] [place] [phone] Notes/Report: Urine, Clean Catch Color Urine Yellow Appearance Urine Clear PH 5.0 5.0-9.0 Glucose Urine UA Negative Negative mg/dL Urine Blood Negative Negative Specific [place] - Urine 1.020 1.005-1.025 Urine Protein Negative [...] ff Reviewed date:02/16/2025 12:47:31 PM Interpretation: Performing Lab:[facility], [address] [place] [phone] Notes/Report: White Blood Count 6.4 4.8-10.8 X10*3/uL [...] Panel Reviewed date:02/16/2025 12:42:05 PM Interpretation: Performing Lab:[address] [address] Notes/Report: Triglycerides 48 <150 mg/dL Desirable Triglyceride: [...] Random Reviewed date:02/16/2025 12:55:22 PM Interpretation: Performing Lab:[address] [address] Notes/Report: Creatinine Urine 120.82 Microalbumin Urine 15.0 Microalbum/Creatinine Ratio Ur 12.4 <30 ug/mg cr Albumin/Creatinine Ratio Reference Ranges: Normal: < 30 ug/mg creatinine Microalbuminuria: 30 - 300 ug/mg creatinine Clinical Albuminuria: > 300 ug/mg creatinine Hemoglobin A1c Reviewed date:02/16/2025 12:41:19 PM Interpretation: Performing Lab:[facility], [address] [place] [phone] Notes/Report: Hemoglobin A1c % 5.8 <6.0 % [...] average glucose, using the formula of the S5Q-Jyncdkf Average Glucose study (ADAG), Diabetes Care, Vol.31,#8, Sep. 2007 Occult Blood, Stool, Guaiac Reviewed date:02/21/2024 01:18:11 PM Interpretation:Negative Performing Lab: Notes/Report: Negative Occult Blood, Stool, Guaiac Neg Reason For Referral No Information Medications Medication SIG (Take, Route, Frequency, Duration) Notes Start Date End Date Status Melatonin 1 MG 1 capsule at bedtime as needed Orally Once a day for 30 day(s) Active Hbiojd-Pqvmmfjei-OYR Complex Orally Active Fish Oil 1000 MG 1 capsule Orally Onc e a day Active Multi Vitamin Mens Orally A ctive Aspir-Low 81 MG 1 tablet Orally Once a day for 30 day(s) 03/26/2023 Active Naprosyn 375 MG 1 tablet Orally Twic e a day for 30 day(s) 11/09/2013 Active Atorvastatin Calcium 20 MG 1 tablet Oral ly Once a day for 90 days Active Immunizations Vaccine Route Administration Date Status Comme nts [...] the vaccine at [facility] [address] Fluarix Quadrivalent IM Intramuscular 01/19/2020 Administe red SARS-COV-2 Pfizer Unknown 06/12/2020 Administered SARS-COV-2 Pfizer Unknown 07/03/2020 Administered Influenza High Dose IM Intramuscular 11/03/2020 Administer ed SARS-COV-2 Pfizer Unknown 01/11/2021 Administered PPSV23 (Pnemovax) IM Intramuscular 09/04/2021 Administered Influenza High Dose Unknown 10/27/[address] [facility] SARS-COV-2 Pfizer Unknown 10/29/2021 Administered [facility] Fluarix Quadrivalent Unknown 10/27/2021 [facility]ered [facility] Influenza High Dose IM Intramuscular 11/20/2022 Administer ed SARS-COV-2 Pfizer Unknown 07/11/2023 Administered [facility] Flu Vaccine Unknown 11/09/2013 Pending Social History Tobacco Use: Social History Observation [...] ast year? No Points 0 Interpretation Negative Problems Problem Type SNOMED Code ICD Code Onset Dates Problem Status W/U Status Risk Notes Problem Old myocardial infarction (3048768) Old myocardial infarction (I25.2) Active confirmed Problem 392315330 Prediabetes (R73.03) Active confirmed Problem 616238491 Pure hypercholesterolemia (E78.00) Active confirmed Problem Peyronie's disease (3136176) Peyronie's disease (N48.6) Active confirmed Problem 996912250 BMI 30.0-30.9,ad ult (Z68.30) Active confirmed Problem 734066957 BMI 31.0-31.9,ad ult (Z68.31) Active confirmed Problem 814268883 Transient ischem ic attack (TIA) (G45.9) Active confirmed Problem 915834426 Cerebral meningi bea (D32.0) Active confirmed Vital Signs Blood pressure diastolic 64 mm Hg 02/21/2024 kayla ght is up 11 pounds since 02-14-23 Height 73.5 in 02/21/2024 weight is up 11 pounds since 02-14-23 Blood pressure systolic 142 mm Hg 02/21/2024 weig ht is up 11 pounds since 02-14-23 Weight 244 lbs 02/21/2024 weight is up 11 pounds since 02-14-23 BMI 31.75 kg/m2 02/21/2024 weight is up 11 pounds since 02-14-23 Encounters Encounter Location Date Provider Diagnosis Samy Le MD [address] [place] [address] Drive [address] [place] [id number] 02/16/2025 Samy Le Blood tests for rout ine general physical examination Z00.00 ; Pure hypercholesterolemia E78.00 and Prediabetes R73.03 Samy Le MD [address] [place] [address] Drive [address] [place] [id number] 02/21/2024 Samy Le Skin lesion of face L98.9 ; Annual physical exam Z00.00 ; Pure hypercholesterolemia E78.00 ; Prediabetes R73.03 ; Cerebral meningioma D32.0 ; Colon cancer screening Z12.11 and Depression screening Z13.31 Samy Le MD [address] [place] [address] Drive [address] [place] [id number] 02/05/2025 Samy Le MD [address] [place] [address] Drive [address] [place] [id number] 09/17/2024 Samy Le Pure hypercholestero lemia E78.00 Assessments Encounter Date Diagnosis (ICD Code) Assessment Notes Treatment Notes Treatment Clinical Notes Section Notes 02/16/2025 Blood tests for rout ine general physical examination (ICD-10 - Z00.00) 02/21/2024 Skin lesion of face (ICD-10 - L98.9) referral to dermatology/ info given to patient to call and make his own appt 02/21/2024 Annual physical exam (ICD-10 - Z00.00) labs reviewed and discussed with patient 09/17/2024 Pure hypercholesterolemia (ICD-10 - E78.00) 02/16/2025 Pure hypercholesterolemia (ICD-10 - E78.00) 02/21/2024 Pure hypercholesterolemia (ICD-10 - E78.00) doing well, will continue current regiment 02/16/2025 Prediabetes (ICD-10 - R73.03) 02/21/2024 Prediabetes (ICD-10 - R73.03) advised on diet 02/21/2024 Cerebral meningioma (ICD-10 - D32.0) will repeat mri next year/ order printed and put in future folder 02/21/2024 Colon cancer screeni ng (ICD-10 - Z12.11) guaiac negative 02/21/2024 Depression screening (ICD-10 - Z13.31) negative screen Plan Of Treatment Pending Test Test Name Order Date Electrocardiogram (EKG) 12/20/2016 Electrocardiogram (EKG) 12/15/2015 MRI BRAIN NO CONTRAST 02/14/2023 MRI BRAIN W&WO CONTRAST 03/07/2023 US CAROTID BILATERAL DOPPLER 02/14/2023 Comprehensive [place]. Panel Fast PSA,Total (Free>4and<10) 02/16/2025 UA ClnCatch+Micro w/rflx Cult 02/16/2025 Next Appt Details Provider Name:Samy Garcia ier, 02/25/2025 08:30:00 AM, [address] [place] [address], [address], [place], [place], [phone], Insurance Providers Payer Name Payer Address Payer Phone Subscriber Number Group Number Insured Name Patient Relationship to Insured Coverage Start Date Coverage End Date [employer]AGE [address] CHELSIE RAMIREZ [id number] Mauricio Horn Self - patient is the insured Medical (General) History Medical History History ICD Code [place]-2000 colonoscopy 2006 ; colonosco py 05/31/[address] Bower - repeat 5 years(2021):Colonoscopy 05/01/21 due n 5 yrs meningioma 2023. repeat mri with contras t 2026
--- OUTSIDE RECORDS SUMMARY | 2025-02-16 14:22 | XMS_ITS | Patient Health Record ---
Author Organization [facility] Address [address] [place] [address] Care Team Providers Care Jigger Artisan Name Role Phone Mimi REYNOSO, Samy Primary Care Provider Harrison Lynn Unavailable [phone] Brady Ma MD Unavailable Unavailable Allergies No Known Allergies Reason For Referral No Information Medications Medication SIG (Take, Route, Frequency, Duration) Notes Start Date End Date Status Fish Oil 1000 MG Capsule 1 capsule Orall y Once a day Active Atorvastatin Calcium 20 MG Tablet Oral; Duration: 90 Active Glucosamine Active Flaxseed (Linseed) A ctive Aspirin Adult Low Dose 81 MG Tablet Delayed Release 1 tablet Orally Once a day; Duration: 30 day(s) Active Multivitamin - Tablet 1 tablet Orally On ce a day Active Melatonin Active Immunizations Vaccine Route Administration Date Status Comme nts Influenza Unknown 10/19/2020 Administered Social History Social History Drugs/Alcohol: Social Info Question Answer Notes Alcohol Screen Did you have a drink containing alcohol in the past year? No Points 0 Interpretation Negative Additional Details Category Social Info Options Details Miscellaneous: Marital status: single Occupation: retired Section Notes: Nonsmoker; occasional beer Nonsmoker; occasional beer Problems Problem Type SNOMED Code ICD Code Onset Dates Problem Status W/U Status Risk Notes Problem Screening for malignant neoplasm of colon (949117372) Encounter for screening for malignant neoplasm of colon (Z12.11) Active confirmed Problem Screening for malignant neoplasm of rectum (257387459) Encounter for screening for malignant neoplasm of rectum (Z12.12) Active confirmed Problem Preprocedural examination (493496704642615) Preprocedural examination (Z01.818) Active confirmed Problem Family History of Cancer of Colon (Situation) (312503403) Family history of colon cancer (Z80.0) Active confirmed Problem Abnormal feces (622489914) Heme + stool (R19.5) Active confirmed Problem Long-term current use of antiplatelet drug (650116861896133) Long-term use of aspirin therapy (Z79.82) Active confirmed Problem Diverticulosis of colon (917762269) Diverticulosis of colon (K57.30) Active confirmed Plan Of Treatment Future Test Test Name Order Date COLONOSCOPY 04/19/2016 COLONOSCOPY 03/21/2021 Insurance Providers Payer Name Payer Address Payer Phone Subscriber Number Group Number Insured Name Patient Relationship to Insured Coverage Start Date Coverage End Date [facility] [address] [address] [place] [address] [id number] ZEESHAN HORN Self - patient is the insured Medical (General) History Medical History History ICD Code 1999--SD--Angioplasty/stent--no cardiac problems since then Denies DM,CVA,Lung disease,renal disease Hyperlipidemia Describes a negative colonoscopy in [facility] in approx 2006 Melanoma Colonoscopy in 04/2016 was negative Surgical History Surgery Date(Month/Year) Appendectomy 2014
--- OUTSIDE RECORDS SUMMARY | 2025-02-16 14:23 | XMS_ITS | Patient Health Record ---
Author [facility] [place] [place] Address [address] [place] [address] Care Team Providers Care Correctional Classification Counselor Name Role Phone Mimi REYNOSO, Samy Primary Care Provider Elsa Langston Unavailable [phone] Reason For Referral No Information Medications Medication SIG (Take, Route, Frequency, Duration) Notes Start Date End Date Status Atorvastatin Calcium 10 MG 1 tablet Oral ly Once a day Active Glucosamine Active Fish Oil Active Multivitamin Adult - Orally Active Aspirin 81 MG 1 tablet Orally Once a day Active Social History Tobacco use other than smoking: Question Answer Notes Are you an other tobacco user? No Problems Problem Type SNOMED Code ICD Code Onset Dates Problem Status W/U Status Risk Notes Problem Acquired hammer toe of right foot (1529037549569 105) Other hammer toe(s) (acquired), right foot (M20.41) Active confirmed Plan Of Treatment Pending Test Test Name Order Date 40085-Ctgjukiy Plate 04/27/2016 92844-Wsorspbb Plate Each Additional 11/2016 84461- Debride <25 sq cm 05/11/2016 Insurance Providers Payer Name Payer Address Payer Phone Subscriber Number Group Number Insured Name Patient Relationship to Insured Coverage Start Date Coverage End Date [employer] 65 Medicare Preferred [address] [place] [address] [phone] [id number] Mauricio Horn Self - patient is the insured Medical (General) History Medical History History ICD Code Arthritis skin cancer High blood pressure Warts Measles Mumps Chicken pox Back pain Heart attack Surgical History Surgery Date(Month/Year) angioplasty 2000 appendectomy 2014
== END 2025-02-16 07:31 | disposition home or self-care (01) ==
LOC: HO.LNP 07:30
PROVIDERS: Visit Provider Internal Medicine
DX: Z00.00 Encounter for general adult medical examination without abnormal findings (principal); E78.00 Pure hypercholesterolemia, unspecified; R73.03 Prediabetes; Z12.5 Encounter for screening for malignant neoplasm of prostate
CPT/HCPCS: 80053; 80061; 81001; 82043; 82570; 83036; 84153; 84154; 85025; 87086; 87088; 87186